=== PATIENT | male | born 1960 | race Caucasian/White ===

== ENCOUNTER 2020-07-13 07:30 | Outpatient (REF) | payer OTHER, SELFPAY | END 2020-07-13 07:31 | disposition home or self-care (01) | LOC: HO.LAB 07:30 | PROVIDERS: PCP Internal Medicine; Visit Provider Internal Medicine | DX: Z20.828 Contact with and (suspected) exposure to other viral communicable diseases (principal) | CPT/HCPCS: C9803; U0003 ==

== ENCOUNTER 2020-07-25 07:16 | Outpatient (REF) | payer OTHER, SELFPAY | END 2020-07-25 07:17 | disposition home or self-care (01) | LOC: HO.LAB 07:16 | PROVIDERS: PCP Internal Medicine; Visit Provider Internal Medicine | DX: Z20.828 Contact with and (suspected) exposure to other viral communicable diseases (principal) | CPT/HCPCS: C9803; U0003 ==

== ENCOUNTER 2020-11-26 08:31 | Outpatient (REF) | payer OTHER, SELFPAY ==
[2020-11-26 09:12] LABS: MANUAL DIFF FLAG NO
[2020-11-26 09:21] LABS: Basophils Absolute Auto 0.1 X10*3/uL (0.0-0.2); Basophils Percent Auto 0.8 % (0-2); Eosinophils Absolute Auto 0.1 X10*3/uL (0.0-0.4); Eosinophils Percent Auto 2.2 % (0-4); Hematocrit 43.8 % (42-52); Hemoglobin 14.4 g/dl (14.0-18.0); Imm Gran Abs Auto 0.02 X10*3/uL (0.00-0.03); Imm Gran Pct Auto 0.3 % (0.0-0.4); Lymphocytes Absolute Auto 1.6 X10*3/uL (1.2-4.9); Mean Corpuscular HGB Conc 32.9 g/dl (31.0-36.0); Mean Corpuscular Hemoglobin 30.2 pg (27.0-33.0); Mean Corpuscular Volume 91.8 fL (80-98); Mean Platelet Volume 8.8 fL (9.4-12.4); Monocytes Absolute Auto 0.6 X10*3/uL (0.1-1.2); Monocytes Percent Auto 9.4 % (2-11); Neutrophils Absolute Auto 3.9 X10*3/uL (2.0-8.3); Neutrophils Percent Auto 62.3 % (45-73); Platelet Count 251 X10*3/uL (160-400); Red Blood Count 4.77 X10*6/uL (4.60-5.80); White Blood Count 6.3 X10*3/uL (4.8-10.8)
[2020-11-26 10:09] LABS: PSA,Total (Free>4and<10) 0.45 ng/mL (0.00-4.00)
[2020-11-26 10:24] LABS: Alanine Aminotransferase 29 U/L (0-40); Albumin Level 4.3 g/dL (3.5-5.0); Alkaline Phosphatase 98 U/L (39-117); Anion Gap 9 (12-20); Aspartate Amino Transferase 24 U/L (5-37); Bilirubin Total 0.9 mg/dL (0.0-1.0); Blood Urea Nitrogen 16 mg/dL (9-16); Calcium 8.9 mg/dL (8.4-10.2); Carbon Dioxide 30 mmol/L (22-29); Chloride 106 mmol/L (96-108); Cholesterol 175 mg/dL; Estimated Glomerular Filt Rate > 60; Glucose Fasting 106 mg/dL (60-99); HDL Cholesterol 36 mg/dL; LDL Cholesterol Calculated 117 mg/dl; Potassium 4.6 mmol/L (3.3-5.1); Sodium 140 mmol/L (135-145); Total Protein 6.7 g/dL (6.5-8.0); Triglycerides 114 mg/dL
== END 2020-11-26 08:32 | disposition home or self-care (01) ==
LOC: HO.LAB 08:31
PROVIDERS: PCP Internal Medicine; Visit Provider Internal Medicine
DX: Z00.00 Encounter for general adult medical examination without abnormal findings (principal); E78.00 Pure hypercholesterolemia, unspecified
CPT/HCPCS: 36415; 80053; 80061; 84153; 85025

== ENCOUNTER → 2021-02-20 14:46 | Outpatient (REF) | payer OTHER, SELFPAY ==
--- NOTE | 2021-02-20 14:50 | CA_ITS ---
Transthoracic Echocardiogram Patient (Last, First, Middle): Navjot Tapia R Gender: Male Date of : 1960 Age: 61 Procedure Date: 02/20/2021 Procedure Type: Transthoracic Echocardiogram Location: OP Height: 175.26 cm Weight: 101.15 kg BSA: 2.16 m2 Heart Rate: bpm BP: 140 / 80 mmHg Professor Of English: JEF Adair MD: Jayesh Waters MD Rn Family Practice: Oracio Solis MD Symptoms: NON RHEUMATIC MITRAL REGURG I34.0 Study Quality: Good ECG Rhythm: Sinus Conclusions: - 1. Normal LV systolic and diastolic function 2. Mild mitral calcification with trace mitral regurgitation 3. Normal RV systolic pressure 4. No pericardial effusion Findings Left Ventricle Normal left ventricular size, thickness, and systolic function. The visually estimated ejection fraction is between 65-70%. Spectral Doppler is indicative of a normal filling pattern. Right Ventricle Normal right ventricular cavity size and systolic function. Atria The left atrium is likely dilated. There is no evidence of interatrial shunt. The right atrium is normal in size. Aortic Valve Normal aortic valve structure and function. There is no aortic valve stenosis. There is no aortic valve regurgitation. Mitral Valve Normal mitral valve structure and function. There is mild mitral annular calcification. There is trace mitral valve regurgitation. There is no mitral valve stenosis. Pulmonic Valve The pulmonic valve is likely normal. Tricuspid Valve Normal tricuspid valve structure. There is trace tricuspid valve regurgitation. The right ventricular systolic pressure is normal. The right ventricular systolic pressure is 20 mmHg. Normal right atrial pressure. There is no evidence of pulmonary hypertension. Great Vessels All visible segments of the aorta are normal in size. The pulmonary artery was not well visualized. Venous The inferior vena cava is normal in size and collapses greater than 50% with inspiration. Pericardium/Pleural There is no evidence of pericardial effusion. Prior Study Comparison No prior study available for comparison. Measurements 2D Linear Measurements IVSd: 1.02 0.6-0.9/0.6-1.0 cm LVIDd: 4.53 3.9-5.3/4.2-5.9 cm LVIDd Index: 2.10 2.4-3.2/2.2-3.1 cm/m2 LVIDs: 2.99 2.0-3.6 cm LVPWd: 1.05 0.7-1.1 cm Ao Root: 3.40 2.1-3.5 cm LA Diam: 3.10 2.7-3.8/3.0-4.0 cm LAIDs Index: 1.44 1.5-2.3 cm/m2 LV Mass: 202.32 67-162/88-224 g LV Mass Index: 93.67 43-95/49-115 g/m2 LVOT Diam: 2.30 3.0+(-)1.3 cm 2D Systolic Function EF 4C: 66.70 >55% EF 2C: 64.70 >55% EF BiP: 65.20 >55% Mitral Valve MV Pk E: 0.78 MV PK A: 0.66 MV Decel Time: 236.00 E/A: 1.20 E'Lateral: 9.90 E'Medial: 6.53 E/E' Med: 11.90 E/E' Lat: 7.80 PHT: 69.00 MVA PHT: 3.19 Decel [place]: 3.30 Aortic Valve AoV Pk Ceasar: 1.22 AoV Mn Ceasar: 0.82 AoV VTI: 0.24 AoV Pk Grad: 6.00 Aov Mn Grad: 3.00 ROSY Cont.VTI: 3.20 LVOT LVOT Pk Ceaasr: 1.15 LVOT Mn Ceasra: 0.69 LVOT VTI: 0.19 LVOT Pk Grad: 5.00 LVOT Mn Grad: 2.00 LVOT Diam: 2.30 LVOT Area: 4.15 Diastolic Function MV Pk E: 0.78 MV Pk A: 0.66 E/A: 1.20 E'Medial: 6.53 E/E' Med: 11.90 E' Laterial: 9.90 E/E' Lat: 7.80 Tricuspid Valve TR Pk Ceasar: 2.06 TR Pk Grad: 17.00 RA Press: 3.00 RVSP: 20.00 Great Vessels Aorta Ao Root-2D: 3.40 2.0-3.7 cm Ao Asc: 3.60 2.1-3.4 cm Ao Arch: 3.00 Updated in Other Vendor System with Status of Final Oracio Solis MD electronically signed on 02/21/2021 11:40:32 AM with status of Final
== END ==
LOC: HO.CARD 14:46
PROVIDERS: Visit Provider Internal Medicine
DX: I34.0 Nonrheumatic mitral (valve) insufficiency (principal)
CPT/HCPCS: 93306

== ENCOUNTER 2021-03-06 08:57 | Outpatient (REF) | payer OTHER, SELFPAY ==
--- NOTE | ~2021-03-06 | US_ITS ---
EXAMINATION: US ABDOMEN COMPLETE CLINICAL INFORMATION: Abdominal pain. COMPARISON: Renal ultrasound 07/29/2012. CT of the abdomen and pelvis 2009 TECHNIQUE: Real-time imaging of the abdominal viscera. FINDINGS: PANCREAS: Normal. ABDOMINAL AORTA: The proximal, mid, and distal segments are normal in caliber. INFERIOR VENA CAVA: Not well visualized due to bowel gas LIVER: The liver is normal in size. The liver contour is normal. Liver echotexture is increased probably representing fatty infiltration. There is a focal hypoechoic areas adjacent to the gallbladder, characteristic location of focal fatty sparing. No other focal hepatic lesion. There is no intrahepatic biliary duct dilatation seen. GALLBLADDER: Normal. The gallbladder is physiologically distended without evidence of stones, sludge, polyps, wall thickening or pericholecystic fluid. COMMON BILE DUCT: Normal in caliber measuring 0.28 cm in diameter. RIGHT KIDNEY: Normal. No hydronephrosis. No renal calculi or focal parenchymal lesions. The kidney measures 12.0 cm in maximum dimension. LEFT KIDNEY: Normal. No hydronephrosis. No renal calculi or focal parenchymal lesions. The kidney measures 11.3 cm in maximum dimension. SPLEEN: Normal. The spleen measures 10.3 cm in maximum dimension. FREE FLUID: None. US/US abdomen complete IMPRESSION: Fatty infiltration of the liver. Limited visualization of the IVC. Otherwise unremarkable exam.
== END 2021-03-06 08:58 | disposition home or self-care (01) ==
LOC: HO.US 08:57
PROVIDERS: Visit Provider Internal Medicine
DX: R10.13 Epigastric pain (principal)
CPT/HCPCS: 76700

== ENCOUNTER 2021-03-10 10:18 | Day surgery (SDC) | payer OTHER, SELFPAY ==
--- NOTE | 2021-03-09 10:10 | P.CONAN_ITS ---
Documented by User: Yelitza Olson 03/09/21 10:11 HPI - Anesthesia Eval Consult details Narrative: 61yo M for Upper Endoscopy and Colonoscopy [facility] Past Medical History Medical History (Updated 03/09/21 @ 10:11 by Yelitza Olson) GERD (gastroesophageal reflux disease) Hyperlipidemia Non-rheumatic mitral regurgitation Surgical History Surgical History (Updated 03/06/21 @ 11:01 by Antoinette Nunes) History of esophagogastroduodenoscopy (EGD) Hx of colonoscopy Hx of hemorrhoidectomy Social History Social History Patient Tobacco Use Status: Never used Tobacco Use of substances other than those prescribed or required for medical reasons: No Have you been hit, kicked, punched, or otherwise hurt by someone within the past year? If so, by whom?: No Are you DNR?: No Advance Directives: No Advance Directives Information Provided: Yes Meds Allergies Allergy/AdvReac Type Severity Reaction Status Date / Time No Known Allergies Allergy Unverified 05/12/20 15:35 Home Medications Medication Instructions Recorded Confirmed Last Taken Type atorvastatin 1 tab PO DAILY 03/06/21 03/06/21 Unknown History omeprazole 1 cap PO DAILY 03/06/21 03/06/21 Unknown History Exam Exam Date and Time: March 09, 2021 1010 Narrative Narrative: ECHO 01/2021 Conclusions: - 1. Normal LV systolic and diastolic function 2. Mild mitral calcification with trace mitral regurgitation 3. Normal RV systolic pressure 4. No pericardial effusion Assessment and Plan Assessment Anesthesia Assessment: Chart Reviewed Documented by User: Saud Haq 03/10/21 12:03 [facility] Past Medical History Medical History (Updated 03/09/21 @ 10:11 by Yelitza Olson) GERD (gastroesophageal reflux disease) Hyperlipidemia Non-rheumatic mitral regurgitation Surgical History Surgical History (Updated 03/06/21 @ 11:01 by Antoinette Nunes) History of esophagogastroduodenoscopy (EGD) Hx of colonoscopy Hx of hemorrhoidectomy Social History Social History Patient Tobacco Use Status: Never used Tobacco Use of substances other than those prescribed or required for medical reasons: No Have you been hit, kicked, punched, or otherwise hurt by someone within the past year? If so, by whom?: No Are you DNR?: No Advance Directives: No Advance Directives Information Provided: Yes Meds Allergies Allergy/AdvReac Type Severity Reaction Status Date / Time No Known Allergies Allergy Unverified 05/12/20 15:35 Home Medications Medication Instructions Recorded Confirmed Last Taken Type atorvastatin 1 tab PO DAILY 03/06/21 03/06/21 Unknown History omeprazole 1 cap PO DAILY 03/06/21 03/06/21 Unknown History Exam Airway Mallampati Class: III TM Dist: >3cm Neck ROM: Full Partial: Upper Heart: [id number]+[id number] Lungs: cta b/l Assessment and Plan Assessment Anesthesia Assessment: Anesthesia Plan Discussed, PAT Visit and Chart Reviewed Final Anesthetic Review NPO: Yes ASA Class: III Final Preanesthetic Review: No Changes in Pt Med Stat, Meds/Allgs Chart Reviewed, Consent Obtained/Reviewed and Anes Risks/Benef Reviewed Patient Risk: Intermediate Procedure Risk: Low Assessment/Block/Sedation in SS: Assess/Block/Sedation-SS Anesthetic Plan Anesthetic Plan: MAC: and Agree w/ Assess. and Plan Disposition: Standard PACU
[2021-03-10 10:35] VITALS: BMI 32.5
[2021-03-10 10:36] VITALS: BP 168/75; PULSE 69; RESP 18; TEMP 36.5; O2SAT 97
[2021-03-10] MEDS: Lactated Ringers 1,000 ML 100 ML IVCONT (10:57)
[2021-03-10 13:03] VITALS: BP 114/68; PULSE 62; RESP 12; TEMP 36.2; O2SAT 94
--- NOTE | 2021-03-10 13:04 | P.BOP_ITS ---
Brief Operative Note Date of Service: 03/10/21 Pre-op diagnosis: GERD, Screening Post-op diagnosis: other (Hiatal hernia, Gastric polyps, Colon polyp) Procedure: EGD with biopsy and Colonoscopy to the cecum with biopsy and removal of polyp Surgeon: Gibson Reagan Anesthesia: MAC Was an Insurance Claim Representative used for this Procedure?: No Estimated blood loss (mL): 3.0 Pathology: other (A. EG Junction at 37cm B. Gastric polyps C. Colon polyp at 20cm) Condition: stable Disposition: PACU
[2021-03-10 13:18] VITALS: BP 135/81; PULSE 64; RESP 17; TEMP 36.2; O2SAT 96
[2021-03-10] MEDS: Acetaminophen 325 MG TABLET 650 MG PO (13:27)
--- NOTE | 2021-03-10 13:33 | OP_ITS ---
SURGEON: Gibson Reagan MD INDICATIONS: The patient presents for evaluation of gastroesophageal reflux, family history of esophageal cancer, and colorectal cancer screening. Full consent has been obtained from him for both procedures, including risks of bleeding and perforation. PREOPERATIVE DIAGNOSIS: POSTOPERATIVE DIAGNOSIS: PROCEDURE PERFORMED: Esophagogastroduodenoscopy with biopsies, and colonoscopy to the cecum with biopsy and removal of polyp. ESTIMATED BLOOD LOSS: COMPLICATIONS: ANESTHESIA: Monitored anesthesia care. ASSISTANTS: SPECIMENS: PREOPERATIVE DIAGNOSES: Gastroesophageal reflux, family history of esophageal cancer, colorectal cancer screening. POSTOPERATIVE DIAGNOSES: Gastroesophageal reflux, family history of esophageal cancer, colorectal cancer screening, hiatal hernia, gastric polyps, colon polyp, diverticulosis and internal hemorrhoids. DESCRIPTION OF PROCEDURE: The patient was placed in the left lateral decubitus position. The Olympus video gastroscope was passed in the posterior oropharynx and upper esophagus under direct vision. The scope was passed slowly into the distal esophagus. The gastroesophageal junction appeared at 37 cm. There was a very minimal irregularity, but no esophagitis nor any definitive evidence of Bautista's mucosa. The scope entered into the stomach. There was a small hiatal hernia. The scope was advanced to pylorus and the duodenum was cannulated to the descending portion. The duodenum including the bulb appeared normal without mass or ulceration. The scope was withdrawn back in the stomach. The gastric antrum and body appeared normal with good peristalsis. The scope was retroflexed visualizing the proximal stomach carefully, which appeared normal, without any sign of mass or ulceration, other than some hyperplastic appearing gastric polyps. Several of these were biopsied. The scope was straightened out and withdrawn back into the esophagus. Biopsies were obtained at the EG junction at 37 cm. Proximal to this, the esophageal mucosa appeared normal. The scope was withdrawn from the patient. He was turned around for the colonoscopy. The digital rectal exam revealed no abnormalities. The Olympus video pediatric colonoscope was entered into the rectum and advanced easily to the cecum. Once in the cecum, I did identify normal-appearing cecal pouch with appendiceal orifice and a normal-appearing ileocecal valve. The entire cecum and ileocecal valve appeared normal. There was transillumination of light deep in the right lower quadrant. The scope was slowly withdrawn assessing all mucosal surfaces carefully. Preparation was excellent. At 20 cm, was a flat approximately 4 mm polyp, which was biopsied and completely removed with cold biopsy forceps. I did not visualize any other polyps, colitis, nor angiodysplasia. There was a moderate amount of sigmoid diverticulosis. In the rectum, scope was retroflexed visualizing small internal hemorrhoids, but no other pathology. The rectal mucosa appeared normal. The scope was straightened out and withdrawn from the patient. He tolerated both procedures well and was returned to the recovery area in stable condition. IMPRESSION: 1. Hiatal hernia, gastroesophageal reflux. 2. Gastric polyps. 3. Colon polyp. 4. Diverticulosis. 5. Internal hemorrhoids. PLAN: The results of biopsy will be checked. If the colon polyp is a tubular adenoma, I would recommend a followup colonoscopy in 5 years. If it is only hyperplastic, I would recommend a followup colonoscopy in 10 years. He was advised to continue his daily omeprazole. He will otherwise see me on a p.r.n. basis. MD TANMAY Mendoza/MAGY / [phone]
== END 2021-03-10 13:51 | disposition home or self-care (01) ==
PROVIDERS: PCP Internal Medicine; Visit Provider Internal Medicine
PROC: (CPT 45380; principal; 2021-03-10 11:30)
DX: Z12.11 Encounter for screening for malignant neoplasm of colon (principal); K63.5 Polyp of colon; K57.30 Diverticulosis of large intestine without perforation or abscess without bleeding; K64.8 Other hemorrhoids; K21.9 Gastro-esophageal reflux disease without esophagitis; Z80.0 Family history of malignant neoplasm of digestive organs; K31.7 Polyp of stomach and duodenum; K44.9 Diaphragmatic hernia without obstruction or gangrene; E78.5 Hyperlipidemia, unspecified; I34.0 Nonrheumatic mitral (valve) insufficiency; Z79.899 Other long term (current) drug therapy
CPT/HCPCS: 45380; 43239; 88305; 88342

== ENCOUNTER 2021-06-03 08:13 | Outpatient (REF) | payer OTHER, SELFPAY ==
[2021-06-03 09:15] LABS: Alanine Aminotransferase 28 U/L (0-40); Albumin Level 4.4 g/dL (3.5-5.0); Alkaline Phosphatase 113 U/L (39-117); Aspartate Amino Transferase 25 U/L (5-37); Bilirubin Direct 0.3 mg/dL (0.0-0.5); Bilirubin Total 0.7 mg/dL (0.0-1.0); Cholesterol 180 mg/dL; HDL Cholesterol 39 mg/dL; LDL Cholesterol Calculated 125 mg/dl; Total Protein 6.8 g/dL (6.5-8.0); Triglycerides 84 mg/dL
== END 2021-06-03 08:14 | disposition home or self-care (01) ==
LOC: HO.LAB 08:13
PROVIDERS: PCP Internal Medicine; Visit Provider Internal Medicine
DX: E78.00 Pure hypercholesterolemia, unspecified (principal)
CPT/HCPCS: 36415; 80061; 80076

== ENCOUNTER 2021-09-09 08:38 | Outpatient (REF) | payer OTHER, SELFPAY ==
[2021-09-09 10:01] LABS: Alanine Aminotransferase 25 U/L (0-40); Albumin Level 4.5 g/dL (3.5-5.0); Alkaline Phosphatase 100 U/L (39-117); Aspartate Amino Transferase 24 U/L (5-37); Bilirubin Direct 0.4 mg/dL (0.0-0.5); Bilirubin Total 0.9 mg/dL (0.0-1.0); Cholesterol 142 mg/dL; HDL Cholesterol 41 mg/dL; LDL Cholesterol Calculated 82 mg/dl; Triglycerides 99 mg/dL
== END 2021-09-09 08:39 | disposition home or self-care (01) ==
LOC: HO.LAB 08:38
PROVIDERS: PCP Internal Medicine; Visit Provider Internal Medicine
DX: E78.00 Pure hypercholesterolemia, unspecified (principal)
CPT/HCPCS: 36415; 80061; 80076

== ENCOUNTER 2021-12-02 08:41 | Outpatient (REF) | payer OTHER, SELFPAY ==
[2021-12-02 08:52] LABS: MANUAL DIFF FLAG NO
[2021-12-02 09:27] LABS: Basophils Percent Auto 0.8 % (0-2); Eosinophils Absolute Auto 0.1 X10*3/uL (0.0-0.4); Eosinophils Percent Auto 2.7 % (0-4); Hematocrit 42.5 % (42.0-52.0); Hemoglobin 13.9 g/dl (14.0-18.0); Imm Gran Abs Auto 0.02 X10*3/uL (0.00-0.03); Imm Gran Pct Auto 0.4 % (0.0-0.4); Lymphocytes Absolute Auto 1.6 X10*3/uL (1.2-4.9); Lymphocytes Percent Auto 30.4 % (20-40); Mean Corpuscular HGB Conc 32.7 g/dl (31.0-36.0); Mean Corpuscular Hemoglobin 29.8 pg (27.0-33.0); Monocytes Absolute Auto 0.5 X10*3/uL (0.1-1.2); Monocytes Percent Auto 9.5 % (2-11); Neutrophils Absolute Auto 2.9 x10*3/uL (2.0-8.3); Neutrophils Percent Auto 56.2 % (45-73); Platelet Count 218 X10*3/uL (160-400); Red Blood Count 4.67 X10*6/uL (4.60-5.80); Red Cell Distribution Width 13.2 % (11.0-16.0); White Blood Count 5.2 X10*3/uL (4.8-10.8)
[2021-12-02 09:29] LABS: Appearance Urine CLEAR; Color Urine YELLOW; Glucose Urine UA NEG (NEG); Leukocyte Esterase Urine NEG (NEG); Nitrite Urine NEG (NEG); PH 7.5 (5.0-8.0); Specific Gravity - Urine 1.015 (1.005-1.025); Urine Blood 1+ (NEG); Urine Ketones NEG (NEG); Urine Protein NEG (NEG-TRACE)
[2021-12-02 09:39] LABS: Alanine Aminotransferase 34 U/L (0-40); Albumin Level 4.4 g/dL (3.5-5.0); Alkaline Phosphatase 92 U/L (39-117); Anion Gap 11 (12-20); Aspartate Amino Transferase 29 U/L (5-37); Bilirubin Total 0.7 mg/dL (0.0-1.0); Blood Urea Nitrogen 9 mg/dL (9-16); Calcium 9.1 mg/dL (8.4-10.2); Carbon Dioxide 28 mmol/L (22-29); Chloride 107 mmol/L (96-108); Cholesterol 158 mg/dL; Estimated Glomerular Filt Rate > 60; Glucose Fasting 101 mg/dL (60-99); HDL Cholesterol 40 mg/dL; LDL Cholesterol Calculated 97 mg/dl; Potassium 4.5 mmol/L (3.3-5.1); Sodium 141 mmol/L (135-145); Total Protein 6.8 g/dL (6.5-8.0); Triglycerides 107 mg/dL
[2021-12-02 09:41] LABS: WBC Urine 0-2 /HPF (0-4)
== END 2021-12-02 08:42 | disposition home or self-care (01) ==
LOC: HO.LAB 08:41
PROVIDERS: PCP Internal Medicine; Visit Provider Internal Medicine
DX: Z00.00 Encounter for general adult medical examination without abnormal findings (principal); Z12.5 Encounter for screening for malignant neoplasm of prostate; E78.00 Pure hypercholesterolemia, unspecified
CPT/HCPCS: 36415; 80053; 80061; 81001; 84153; 85025

== ENCOUNTER 2022-06-02 10:30 | Outpatient (REF) | payer OTHER, SELFPAY ==
[2022-06-02 11:59] LABS: Alanine Aminotransferase 24 U/L (0-40); Albumin Level 4.6 g/dL (3.5-5.0); Alkaline Phosphatase 82 U/L (39-117); Aspartate Amino Transferase 26 U/L (5-37); Bilirubin Direct 0.3 mg/dL (0.0-0.5); Bilirubin Total 0.8 mg/dL (0.0-1.0); Cholesterol 168 mg/dL; HDL Cholesterol 39 mg/dL; LDL Cholesterol Calculated 104 mg/dl; Total Protein 7.1 g/dL (6.5-8.0); Triglycerides 127 mg/dL
== END 2022-06-02 10:31 | disposition home or self-care (01) ==
LOC: HO.LAB 10:30
PROVIDERS: Visit Provider Internal Medicine
DX: E78.00 Pure hypercholesterolemia, unspecified (principal)
CPT/HCPCS: 36415; 80061; 80076

== ENCOUNTER 2022-12-15 09:18 | Outpatient (REF) | payer OTHER, SELFPAY ==
[2022-12-15 09:33] LABS: MANUAL DIFF FLAG NO
[2022-12-15 10:31] LABS: Appearance Urine Clear; Color Urine Yellow; Glucose Urine UA Negative (Negative); Leukocyte Esterase Urine Negative (Negative); Nitrite Urine Negative (Negative); PH 8.5 (5.0-9.0); Urine Blood Negative (Negative); Urine Ketones Negative (Negative); Urine Protein Negative (Neg-Trace)
[2022-12-15 10:44] LABS: Basophils Absolute Auto 0.1 X10*3/uL (0.0-0.2); Basophils Percent Auto 0.8 % (0-2); Eosinophils Absolute Auto 0.1 X10*3/uL (0.0-0.4); Eosinophils Percent Auto 2.2 % (0-4); Hematocrit 44.3 % (42.0-52.0); Hemoglobin 14.6 g/dl (14.0-18.0); Imm Gran Abs Auto 0.02 X10*3/uL (0.00-0.03); Imm Gran Pct Auto 0.3 % (0.0-0.4); Lymphocytes Absolute Auto 1.6 X10*3/uL (1.2-4.9); Mean Corpuscular Hemoglobin 29.8 pg (27.0-33.0); Mean Corpuscular Volume 90.4 fL (80.0-98.0); Mean Platelet Volume 9.1 fL (9.4-12.4); Monocytes Absolute Auto 0.5 X10*3/uL (0.1-1.2); Monocytes Percent Auto 8.5 % (2-11); Neutrophils Absolute Auto 3.8 x10*3/uL (2.0-8.3); Neutrophils Percent Auto 62.2 % (45-73); Platelet Count 251 X10*3/uL (160-400)
[2022-12-15 11:15] LABS: Alanine Aminotransferase 27 U/L (0-40); Albumin Level 4.5 g/dL (3.5-5.0); Alkaline Phosphatase 82 U/L (39-117); Anion Gap 12 (12-20); Aspartate Amino Transferase 27 U/L (5-37); Bilirubin Total 1.1 mg/dL (0.0-1.0); Blood Urea Nitrogen 11 mg/dL (9-16); Calcium 9.3 mg/dL (8.4-10.2); Carbon Dioxide 26 mmol/L (22-29); Chloride 108 mmol/L (96-108); Cholesterol 143 mg/dL; Estimated Glomerular Filt Rate > 60; Glucose Fasting 91 mg/dL (60-99); HDL Cholesterol 37 mg/dL; LDL Cholesterol Calculated 84 mg/dl; Potassium 4.5 mmol/L (3.3-5.1); Sodium 141 mmol/L (135-145); Total Protein 6.6 g/dL (6.5-8.0); Triglycerides 113 mg/dL
== END 2022-12-15 09:19 | disposition home or self-care (01) ==
LOC: HO.LAB 09:18
PROVIDERS: PCP Internal Medicine; Visit Provider Internal Medicine
DX: Z00.00 Encounter for general adult medical examination without abnormal findings (principal); E78.00 Pure hypercholesterolemia, unspecified; Z12.5 Encounter for screening for malignant neoplasm of prostate
CPT/HCPCS: 36415; 80053; 80061; 81003; 84153; 85025

== ENCOUNTER 2023-07-05 09:42 | Outpatient (REF) | payer OTHER, SELFPAY ==
[2023-07-05 11:28] LABS: Cholesterol 143 mg/dL (<200); HDL Cholesterol 37 mg/dL (>40); LDL Cholesterol Calculated 89 mg/dL (<100); Triglycerides 89 mg/dL (<150)
[2023-07-05 11:45] LABS: Alanine Aminotransferase 20 U/L (0-40); Albumin Level 4.3 g/dL (3.5-5.0); Alkaline Phosphatase 78 U/L (39-117); Aspartate Amino Transferase 24 U/L (5-37); Bilirubin Direct 0.2 mg/dL (0.0-0.5); Bilirubin Total 0.7 mg/dL (0.0-1.0)
[2023-07-05 12:04] LABS: Reflex LDLD? No
== END 2023-07-05 09:43 | disposition home or self-care (01) ==
LOC: HO.LAB 09:42
PROVIDERS: PCP Internal Medicine; Visit Provider Internal Medicine
DX: E78.00 Pure hypercholesterolemia, unspecified (principal)
CPT/HCPCS: 36415; 80061; 80076

== ENCOUNTER 2023-12-21 09:08 | Outpatient (REF) | payer BC, SELFPAY ==
[2023-12-21 09:23] LABS: MANUAL DIFF FLAG NO
[2023-12-21 09:31] LABS: Basophils Percent Auto 0.6 % (0-2); Eosinophils Absolute Auto 0.1 X10*3/uL (0.0-0.4); Eosinophils Percent Auto 2.1 % (0-4); Hematocrit 44.4 % (42.0-52.0); Hemoglobin 15.1 g/dl (14.0-18.0); Imm Gran Abs Auto 0.02 X10*3/uL (0.00-0.03); Imm Gran Pct Auto 0.3 % (0.0-0.4); Lymphocytes Absolute Auto 1.3 X10*3/uL (1.2-4.9); Lymphocytes Percent Auto 21.1 % (20-40); Mean Corpuscular Hemoglobin 30.6 pg (27.0-33.0); Mean Corpuscular Volume 90.1 fL (80.0-98.0); Mean Platelet Volume 8.5 fL (9.4-12.4); Monocytes Absolute Auto 0.6 X10*3/uL (0.1-1.2); Monocytes Percent Auto 9.4 % (2-11); Neutrophils Absolute Auto 4.2 x10*3/uL (2.0-8.3); Neutrophils Percent Auto 66.5 % (45-73); Platelet Count 216 X10*3/uL (160-400); Red Blood Count 4.93 X10*6/uL (4.60-5.80); Red Cell Distribution Width 12.9 % (11.0-16.0); White Blood Count 6.3 X10*3/uL (4.8-10.8)
[2023-12-21 10:20] LABS: Alanine Aminotransferase 30 U/L (0-40); Albumin Level 4.4 g/dL (3.5-5.0); Alkaline Phosphatase 82 U/L (39-117); Anion Gap 11 (12-20); Aspartate Amino Transferase 29 U/L (5-37); Bilirubin Total 0.7 mg/dL (0.0-1.0); Blood Urea Nitrogen 8 mg/dL (9-16); Calcium 9.6 mg/dL (8.4-10.2); Carbon Dioxide 30 mmol/L (22-29); Chloride 107 mmol/L (96-108); Cholesterol 160 mg/dL (<200); Estimated Glomerular Filt Rate > 60; Glucose Fasting 105 mg/dL (60-99); HDL Cholesterol 37 mg/dL (>40); LDL Cholesterol Calculated 91 mg/dL (<100); Potassium 4.3 mmol/L (3.3-5.1); Sodium 144 mmol/L (135-145); Total Protein 7.3 g/dL (6.5-8.0); Triglycerides 160 mg/dL (<150)
[2023-12-21 10:41] LABS: PSA,Total (Free>4and<10) 0.43 ng/mL (0.00-4.00)
[2023-12-21 11:22] LABS: Appearance Urine Clear; Color Urine Yellow; Glucose Urine UA Negative (Negative); Leukocyte Esterase Urine Negative (Negative); Nitrite Urine Negative (Negative); PH >= 9.0 (5.0-9.0); Specific Gravity - Urine 1.015 (1.005-1.025); UMIC TRIGGER UACC YES; Urine Blood Trace (Negative); Urine Ketones Negative (Negative); Urine Protein 30 (1+) mg/dL (Neg-Trace)
[2023-12-21 11:24] LABS: Bacteria Urine None Seen (None Seen); Squamous Epithelial Cell Urine 0-2 /HPF (0-2); WBC Urine 0-5 /HPF (0-5)
== END 2023-12-21 09:09 | disposition home or self-care (01) ==
LOC: HO.LAB 09:08
PROVIDERS: PCP Internal Medicine; Visit Provider Internal Medicine
DX: Z00.00 Encounter for general adult medical examination without abnormal findings (principal); E78.00 Pure hypercholesterolemia, unspecified; Z87.448 Personal history of other diseases of urinary system; Z12.5 Encounter for screening for malignant neoplasm of prostate
CPT/HCPCS: 36415; 80053; 80061; 81001; 84153; 85025

== ENCOUNTER 2024-01-02 15:48 | Outpatient (REF) | payer BC, SELFPAY ==
[2024-01-02 15:55] LABS: Urine Cytology See Pathology rpt
[2024-01-02 16:31] LABS: Appearance Urine Clear; Color Urine Yellow; Glucose Urine UA Negative (Negative); Leukocyte Esterase Urine Negative (Negative); Nitrite Urine Negative (Negative); PH 6.5 (5.0-9.0); Specific Gravity - Urine <= 1.005 (1.005-1.025); Urine Blood Negative (Negative); Urine Ketones Negative (Negative); Urine Protein Negative (Neg-Trace)
[2024-01-02 16:34] LABS: Bacteria Urine None Seen (None Seen); Hyaline Casts Urine 0-2 /LPF (0-2); RBC Urine 0-2 /HPF (0-2); Squamous Epithelial Cell Urine 0-2 /HPF (0-2); WBC Urine 0-5 /HPF (0-5)
== END 2024-01-02 15:49 | disposition home or self-care (01) ==
LOC: HO.LNP 15:48
PROVIDERS: Visit Provider Internal Medicine
DX: E78.00 Pure hypercholesterolemia, unspecified (principal); Z87.448 Personal history of other diseases of urinary system; Z83.3 Family history of diabetes mellitus
CPT/HCPCS: 81001; 88112

== ENCOUNTER 2024-04-28 11:48 | Outpatient (REF) | payer BC, SELFPAY ==
--- NOTE | ~2024-04-28 | XR_ITS ---
EXAMINATION: XR CHEST CLINICAL INFORMATION: Right-sided pain COMPARISON: None available. TECHNIQUE: 2 views of the chest were obtained. FINDINGS: Heart and pulmonary vessels normal. Lungs clear. No pleural effusion. The osseous structures appear intact. There is spondylitic change in the thoracic spine. XR/XR chest 2V IMPRESSION: No active disease. Electronically signed by: Brigido Ferreira MD 04/28/2024 01:36 PM EDT
--- NOTE | ~2024-04-28 | US_ITS ---
EXAMINATION: US TRIPLEX LOWER EXTREMITY, BILATERAL CLINICAL INFORMATION: Bilateral leg edema COMPARISON: None available. TECHNIQUE: Color-flow triplex imaging with spectral analysis and compression Doppler were performed on the bilateral lower extremities. The exam is slightly limited as the left peroneal vein is not visualized. FINDINGS: Respiratory variation, normal compression and augmented flow are noted throughout the bilateral lower extremities. The visualized common femoral vein, superficial femoral vein, profunda femoral vein, popliteal vein and midcalf right peroneal and bilateral posterior tibial venous segments show no evidence of deep venous thrombosis bilaterally. There is no Castillo's cyst. US/US venous duplex LE BI IMPRESSION: No evidence of deep venous thrombosis involving the bilateral lower extremities. Electronically signed by: Fabrizio Trent MD 04/28/2024 12:57 PM EDT
== END 2024-04-28 11:49 | disposition home or self-care (01) ==
LOC: HO.US 11:48
PROVIDERS: PCP Internal Medicine; Visit Provider Internal Medicine
DX: R60.0 Localized edema (principal)
CPT/HCPCS: 71046; 93970

== ENCOUNTER 2024-04-28 13:21 | Outpatient (REF) | payer BC, SELFPAY ==
[2024-04-28 13:34] LABS: Blood Urea Nitrogen 11 mg/dL (9-16); Estimated Glomerular Filt Rate > 60
== END 2024-04-28 13:22 | disposition home or self-care (01) ==
LOC: HO.LNP 13:21
PROVIDERS: Visit Provider Internal Medicine
DX: R07.81 Pleurodynia (principal)
CPT/HCPCS: 82565; 84520

== ENCOUNTER → 2024-05-26 14:51 | Outpatient (REF) | payer BC, SELFPAY ==
--- NOTE | 2024-05-26 14:54 | CA_ITS ---
Transthoracic Echocardiogram Patient (Last, First, Middle): Navjot Tapia R Gender: Male Date of : 1960 Age: 64 Procedure Date: 05/26/2024 Procedure Type: Transthoracic Echocardiogram Location: OP Height: 175.26 cm Weight: 102.06 kg BSA: 2.17 m2 Heart Rate: 65 bpm BP: 128 / 60 mmHg Experimental Physicist: Referring MD: Jayesh Waters MD Symptoms: R01.1 CA MURMUR Study Quality: Adequate ECG Rhythm: Sinus Conclusions: - The left ventricular systolic function is normal. The visually estimated ejection fraction is between 65-70%. - There is mildly increased left ventricular wall thickness. - There is mild mitral annular calcification. - No obvious valvular pathology seen on this study. Findings Left Ventricle Normal left ventricular cavity size. There is mildly increased left ventricular wall thickness. The left ventricular systolic function is normal. The visually estimated ejection fraction is between 65-70%. There is no evidence of regional wall motion abnormalities. Diastolic function is normal for age. Right Ventricle Normal right ventricular cavity size and systolic function. Atria The left atrium is mildly dilated. The right atrium is normal in size. Aortic Valve There is a normal trileaflet aortic valve. There is no aortic valve stenosis. There is no aortic valve regurgitation. Mitral Valve There is mild mitral annular calcification. There is no mitral valve regurgitation. There is no mitral valve stenosis. Pulmonic Valve The pulmonic valve is likely normal. Tricuspid Valve Normal tricuspid valve structure. There is trace tricuspid valve regurgitation. There is no evidence of pulmonary hypertension. Great Vessels The asc aorta is normal in size. Venous The inferior vena cava is normal in size and collapses greater than 50% with inspiration. Pericardium/Pleural There is no evidence of pericardial effusion. Prior Study Comparison No significant change compared to prior study dated: 02/20/2021. Recommendations, Care & Conclusions No obvious valvular pathology seen on this study. Measurements 2D Linear Measurements IVSd: 1.07 0.6-0.9/0.6-1.0 cm LVIDd: 4.58 3.9-5.3/4.2-5.9 cm LVIDd Index: 2.11 2.4-3.2/2.2-3.1 cm/m2 LVIDs: 3.02 2.0-3.6 cm LVPWd: 1.12 0.7-1.1 cm LA Diam: 3.90 2.7-3.8/3.0-4.0 cm LAIDs Index: 1.80 1.5-2.3 cm/m2 LV Mass: 222.79 67-162/88-224 g LV Mass Index: 102.67 43-95/49-115 g/m2 LVOT Diam: 2.20 3.0+(-)1.3 cm 2D Systolic Function EF 4C: 62.00 >55% EF 2C: 69.40 >55% EF BiP: 63.30 >55% Mitral Valve MV Pk E: 0.77 MV PK A: 0.79 MV Decel Time: 236.00 E/A: 1.00 E'Lateral: 8.92 E'Medial: 5.98 E/E' Med: 12.90 E/E' Lat: 8.60 PHT: 69.00 MVA PHT: 3.19 Decel Wilkes: 3.26 Aortic Valve AoV Pk Ceasar: 1.28 AoV Mn Ceasar: 0.88 AoV VTI: 0.24 AoV Pk Grad: 7.00 Aov Mn Grad: 4.00 ROSY Cont.VTI: 3.44 LVOT LVOT Pk Ceasar: 1.03 LVOT Mn Ceasar: 0.66 LVOT VTI: 0.22 LVOT Pk Grad: 4.00 LVOT Mn Grad: 2.00 LVOT Diam: 2.20 LVOT Area: 3.80 Diastolic Function MV Pk E: 0.77 MV Pk A: 0.79 E/A: 1.00 E'Medial: 5.98 E/E' Med: 12.90 E' Laterial: 8.92 E/E' Lat: 8.60 Right Ventricle TAPSE (mm): 25.60 TVS' Ceasar: 14.40 Tricuspid Valve TR Pk Ceasar: 1.77 TR Pk Grad: 13.00 RA Press: 3.00 RVSP: 16.00 Great Vessels Aorta Sinus of Valsalva: 3.20 2.0-3.5 cm Ao Asc: 3.60 2.1-3.4 cm Pulmonary Valve PV Pk Ceasar: 0.80 Peak PV Grad: 3.00 Updated in Other Vendor System with Status of Final Ayo Denis MD electronically signed on 05/26/2024 4:16:48 PM with status of Final
== END ==
LOC: HO.CARD 14:51
PROVIDERS: PCP Internal Medicine; Visit Provider Internal Medicine
DX: R01.1 Cardiac murmur, unspecified (principal)
CPT/HCPCS: 93306

== ENCOUNTER → 2024-05-26 14:54 | Outpatient (BNV) | payer BC, SELFPAY | PROVIDERS: PCP Internal Medicine; Visit Provider Internal Medicine | DX: I34.81 Nonrheumatic mitral (valve) annulus calcification (principal); R01.1 Cardiac murmur, unspecified | CPT/HCPCS: 93306 ==

== ENCOUNTER 2024-12-26 08:45 | Outpatient (REF) | payer BC, SELFPAY ==
[2024-12-26 09:37] LABS: MANUAL DIFF FLAG NO
[2024-12-26 09:56] LABS: Basophils Absolute Auto 0.1 X10*3/uL (0.0-0.2); Basophils Percent Auto 1.1 % (0-2); Eosinophils Absolute Auto 0.2 X10*3/uL (0.0-0.4); Eosinophils Percent Auto 2.9 % (0-4); Hematocrit 43.8 % (42.0-52.0); Hemoglobin 14.8 g/dl (14.0-18.0); Imm Gran Abs Auto 0.02 X10*3/uL (0.00-0.03); Imm Gran Pct Auto 0.3 % (0.0-0.4); Lymphocytes Absolute Auto 1.8 X10*3/uL (1.2-4.9); Lymphocytes Percent Auto 28.5 % (20-40); Mean Corpuscular HGB Conc 33.8 g/dl (31.0-36.0); Mean Corpuscular Volume 88.8 fL (80.0-98.0); Mean Platelet Volume 8.7 fL (9.4-12.4); Monocytes Absolute Auto 0.6 X10*3/uL (0.1-1.2); Monocytes Percent Auto 9.2 % (2-11); Neutrophils Absolute Auto 3.7 x10*3/uL (2.0-8.3); Platelet Count 229 X10*3/uL (160-400); Red Blood Count 4.93 X10*6/uL (4.60-5.80); Red Cell Distribution Width 13.3 % (11.0-16.0); White Blood Count 6.3 X10*3/uL (4.8-10.8)
[2024-12-26 10:32] LABS: Appearance Urine Clear; Color Urine Yellow; Glucose Urine UA Negative (Negative); Leukocyte Esterase Urine Negative (Negative); Nitrite Urine Negative (Negative); Specific Gravity - Urine <= 1.005 (1.005-1.025); UMIC TRIGGER UACC YES; Urine Blood Trace (Negative); Urine Ketones Negative (Negative); Urine Protein Negative (Neg-Trace)
[2024-12-26 10:36] LABS: Bacteria Urine None Seen (None Seen); Hyaline Casts Urine 0-2 /LPF (0-2); RBC Urine 0-2 /HPF (0-2); Squamous Epithelial Cell Urine 0-2 /HPF (0-2); WBC Urine 0-5 /HPF (0-5)
[2024-12-26 10:40] LABS: Alanine Aminotransferase 38 U/L (0-40); Albumin Level 4.4 g/dL (3.5-5.0); Alkaline Phosphatase 88 U/L (39-117); Anion Gap 12 (12-20); Aspartate Amino Transferase 36 U/L (5-37); Bilirubin Total 0.7 mg/dL (0.0-1.0); Blood Urea Nitrogen 10 mg/dL (9-16); Calcium 9.2 mg/dL (8.4-10.2); Carbon Dioxide 26 mmol/L (22-29); Chloride 107 mmol/L (96-108); Estimated Glomerular Filt Rate > 60; Glucose Random 106 mg/dL (60-115); Lipase 13 U/L (8-78); Potassium 4.3 mmol/L (3.3-5.1); Sodium 141 mmol/L (135-145); Total Protein 7.1 g/dL (6.5-8.0)
[2024-12-26 11:04] LABS: PSA,Total (Free>4and<10) 0.38 ng/mL (0.00-4.00)
== END 2024-12-26 08:46 | disposition home or self-care (01) ==
LOC: HO.LAB 08:45
PROVIDERS: PCP Internal Medicine; Visit Provider Internal Medicine
DX: Z00.00 Encounter for general adult medical examination without abnormal findings (principal); E78.00 Pure hypercholesterolemia, unspecified; I10 Essential (primary) hypertension; Z12.5 Encounter for screening for malignant neoplasm of prostate
CPT/HCPCS: 36415; 80053; 81001; 83690; 84153; 85025

== ENCOUNTER 2025-01-12 08:26 | Outpatient (REF) | payer BC, SELFPAY ==
--- OUTSIDE RECORDS SUMMARY | 2025-01-12 08:34 | XMS_ITS | Patient Health Record ---
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 Name Role Phone Jayesh Waters Primary Care Provider [phone] Allergies No Known Allergies Results Component Value Reference Range Notes Occult Blood, Stool, Guaiac Reviewed date:01/07/2025 03:26:26 PM Interpretation:Negative Performing Lab: Notes/Report: Negative Occult Blood, Stool, Guaiac Neg Blood Urea Nitrogen Reviewed date:04/28/2024 01:55:20 PM Interpretation: Performing Lab:[facility], [address] [place] [phone] Notes/Report: Blood Urea Nitrogen 11 9-16 mg/dL Creatinine Reviewed date:04/28/2024 01:55:27 PM Interpretation: Performing Lab:[facility], [address] [place] [phone] Notes/Report: Creatinine 0.88 0.5-1.4 mg/dL Estimated Glomerular Filt Rate > 60 NOTE: For -Latvian individuals, multiply the result by 1.210. Chronic Kidney Disease: Estimated GFR < 60 mL/min/1.73m2 Severe Kidney Disease: Estimated GFR < 15 mL/min/1.73m2 US venous duplex LE BI Reviewed date:04/28/2024 01:04:53 PM Interpretation: Performing Lab: Notes/Report: [facility] [address] [place] [address] Ultrasound Report Signed Patient: Navjot Tapia MR#: [id number] 300 : 1960 Acct:[id number] Age/Sex: 64 / M ADM Date: 04/28/24 Loc: HO.US Attending Dr: Jayesh Waters MD Ordering Physician: Jayesh Waters MD Date of Service: 04/28/24 Procedure(s): US venous duplex LE BI Accession Number(s): [id number] cc: Jayesh Waters MD EXAMINATION: US TRIPLEX LOWER EXTREMITY, BILATERAL CLINICAL INFORMATION: Bilateral leg edema COMPARISON: None available. TECHNIQUE: Color-flow triplex imaging with spectral analysis and compression Doppler were performed on the bilateral lower extremities. The exam is slightly limited as the left peroneal vein is not visualized. FINDINGS: Respiratory variation, normal compression and augmented flow are noted throughout the bilateral lower extremities. The visualized common femoral vein, superficial femoral vein, profunda femoral vein, popliteal vein and midcalf right peroneal and bilateral posterior tibial venous segments show no evidence of deep venous thrombosis bilaterally. There is no Castillo's cyst. US/US venous duplex LE BI IMPRESSION: No evidence of deep venous thrombosis involving the bilateral lower extremities. Electronically signed by: Fabrizio Trent MD 04/28/2024 12:57 PM EDT Dictated By: Adonay Trent MD Signed By: <Electronically signed by Adonay Trent MD in OV> 04/28/24 1257 DD/ 1223 TD/TT: 04/28/24 1237 [employer] Tender: [place] [address] [address] Ultrasound Report Signed Patient: Holden Tapia MR#: [id number] 300 : 1960 Acct:[id number] Age/Sex: 64 / M ADM Date: 04/28/24 Loc: .US Attending Dr: Jayesh Waters MD Ordering Physician: Jayesh Waters MD Date of Service: 04/28/24 Procedure(s): US nereida ous duplex LE BI Accession Number(s): [id number] cc: Jayesh Waters MD EXAMINATION: US TRIPLEX LOWER EXTREMITY, BILATERAL CLINICAL INFORMATION: Bilateral leg edema COMPARISON: None available. TECHNIQUE: Color-flow triplex imaging with spectral analysis and compression Doppler were perform ed on the bilateral lower extremities. The exam is slightly limited as the left peroneal vein is not visualized. FINDINGS: Respiratory variatio n, normal compression and augmented flow are noted throughout the bilat eral lower extremities. The visualized common femoral vein, superficial femoral vein, profunda femoral vein, popliteal vein and midcalf right peroneal and bilateral posterior tibial venous segmen ts show no evidence of deep venous thrombosis bilaterally. There is no Castillo's cyst. U S/US venous duplex LE BI IMPRESSION: No evidence of deep venous thrombosis involving the bilateral lower extremities. Electronically mat d by: Fabrizio Trent MD 04/28/2024 12:57 PM EDT RP Dictated By: Adonay Trent MD Signed By: <Electronically signed by Adonay Trent MD in OV> 04/28/24 1257 DD/ 1223 TD/TT: 04/28/24 1237 [employer]ender: [place] XR chest 2V Reviewed date:04/28/2024 01:55:13 PM Interpretation: Performing Lab: Notes/Report: [address] [address] XRay Report Signed Patient: Navjot Tapia MR#: [id number] 300 : 1960 Acct:[id number] Age/Sex: 64 / M ADM Date: 04/28/24 Loc: HO. Attending Dr: Jayesh Waters MD Ordering Physician: Jayesh Waters MD Date of Service: 04/28/24 Procedure(s): XR chest 2V Accession Number(s): [id number] cc: Jayesh Waters MD EXAMINATION: XR CHEST CLINICAL INFORMATION: Right-sided pain COMPARISON: None available. TECHNIQUE: 2 views of the chest were obtained. FINDINGS: Heart and pulmonary vessels normal. Lungs clear. No pleural effusion. The osseous structures appear intact. There is spondylitic change in the thoracic spine. XR/XR chest 2V IMPRESSION: No active disease. Electronically signed by: Brigido Ferreira MD 04/28/2024 01:36 PM EDT RP Dictated By: Brigido Ferreira MD Signed By: <Electronically signed by Brigido Ferreira MD in OV> 04/28/24 1336 DD/ 1158 TD/TT: 04/28/24 1208 [employer] Tender: [address] [address] XRay Report Signed Patient: Holden Tapia MR#: [id number] 300 : 1960 Acct:[id number] Age/Sex: 64 / M ADM Date: 04/28/24 Loc: . Attending Dr: Jayesh Waters MD Ordering Physician: Jayesh Waters MD Date of Service: 04/28/24 Procedure(s): XR jorge l st 2V Accession Number(s): [id number] cc: Jayesh Waters MD EXAMINATION: XR CHEST CLINICAL INFORMATION: Right-sided pain COMPARISON: None available. TECHNIQUE: 2 views of the chest were obtained. FINDINGS: Heart and pulmonary vessels normal. Lungs clear. No pleural effusion. The osseous structur es appear intact. There is spondylitic change in the thoracic spine. X R/XR chest 2V IMPRESSION: No active disease. Electronically mat d by: Brigido Ferreira MD 04/28/2024 01:36 PM EDT RP Dictated By: Brigido Ferreira MD Signed By: <Electronically signed by Brigido Ferreira MD in OV> 04/28/24 1336 DD/ 1158 TD/TT: 04/28/24 1208 [employer] Tender: Pathology Reviewed date:10/13/2024 12:48:00 PM Interpretation: Performing Lab:[facility], [address] [place] [phone] Notes/Report: ---- Name: Navjot Tapia Age/Sex: 64/M : 1960 [id number]#: [id number] Attend Dr: Gibson Reddy MD Re09/25/24 Status : [facility] Location: [facility] Disch: ---- SPEC : [id number] RECD: 09/25/24-1224 STATUS: ANATona ELIZABETH NUM: [id number] CASEY: 09/25/24-[address] [facility] [address]: Gibson Reddy MD ENTERED: 09/25/24-12 32 SP TYPE: Surgical OTHR DR: Jayesh Waters MD ORDERED: HE Stain/6, Gross Micro L4/2, IHC, Special st. 2/2, H. pylori, AB/PAS/2 COMMENTS: 8 unstaine d slides sent to [facility] for [facility] on 09/30/24. Addendum Addendum 1 Entered: 10/13/24 [employer]: Risk c lass Low; risk score 3.2 See report in its entirety in the EMR - Reports/Pathology section as a scanned report (camera icon). If appropriate, a copy has also been sent to the ordering provider's office. Addendum Signed (signature on file) Lauren Tian MD 10/13/24 0947 ---- Diagnosis A. Gastroesophageal junction, biopsy: Bautista's esophagus and mild chronic active inflammation; negati ve for dysplasia. B. Stomach, polyps, biopsy: Fundic gland poly (s); negative for Helicobacter pylori, intestinal metaplasi a and dysplasia. Clinical History Pre-Op Dx: GERD, Bautista's esophagus without dysplasia Post-Op Dx: Hiatal hernia, reflux, gastric polyps Microscopic Description A-B. Microscopic sections examined. Intestinal metaplasia is highlighted by AB/PAS (A)); No metaplastic arango es are seen in part B, supported by AB/PAS stains; no Helicobacter organisms are seen, supported by H. pylori immunostain (B). Material Received A. EG junction at 39 h/o Bautista's B. Gastric polyps CONTINUED ON NEXT PAGE ---- Name: Navjot Tapia Age/Sex: 64/M : 1960 Unit#: [id number] Attend Dr: Gibson Reddy MD Re09/25/24 Status : [facility] Location: [facility] Disch: ---- SPEC : [id number] RECD: 09/25/24-1225 STATUS: KAREEM JOHNSON NUM: [id number] CASEY: 09/25/24-10[address] [facility] DR: Gibson Reddy MD ENTERED: 09/25/24-12 32 SP TYPE: Surgical OTHR DR: Jayesh Waters MD ORDERED: HE Stain/6, Gross Micro L4/2, IHC, Special st. 2/2, H. pylori, AB/PAS/2 COMMENTS: 8 unstaine d slides sent to [facility] for [facility] on 09/30/24. Gross Description Received in 2 parts. A. Received in forma billie labeled ?EG junction at 39 R/0 Bautista's? are 5 fragments of red- pink soft tissue measuring 0.3-0.4 cm in greatest dimension which are wrapped in lens paper and entirely submitt ed for microscopic examination, 5 pieces in cassette A. B. Received in forma billie labeled ?gastric polyps? are 2 fragments of pink white soft tissue measuring 0.3 and 0. 3 cm in greatest dimension which are wrapped in lens paper and entirely submitted for microscopic examination, 2 pieces in cassette B. smc Special stains order ed and performed: A/B PAS on A-B; immunostain for H pylori on B. Copies To: Jayesh Waters MD [facility] [address] [place], [place] [id number] Gibson Reddy MD [facility] [address] [place] [address] ---- Signed (signature on file) Lauren Tian MD 09/28/24 1500 ---- END OF REPORT Complete Blood Count Auto Di ff Reviewed date:12/27/2024 03:42:26 PM Interpretation: Performing Lab:[facility], [address] [place] [phone] Notes/Report: White Blood Count 6.3 4.8-10.8 X10*3/uL Red Blood Count 4.93 4.60-5.80 X10*6/uL Hemoglobin 14.8 14.0-18.0 g/dl Hematocrit 43.8 42.0-52.0 % Mean Corpuscular Volume 88.8 80.0-98.0 fL Mean Corpuscular Hemoglobin 30.0 27.0-33.0 pg Mean Corpuscular HGB Conc 33.8 31.0-36.0 g/dl Red Cell Distribution Width 13.3 11.0-16.0 % Platelet Count 229 160-400 X10*3/uL Mean Platelet Volume 8.7 9.4-12.4 fL Neutrophils Percent Auto 58.0 45-73 % Imm Gran Pct Auto 0.3 0.0-0.4 % Lymphocytes Percent Auto 28.5 20-40 % Monocytes Percent Auto 9.2 2-11 % Eosinophils Percent Auto 2.9 0-4 % Basophils Percent Auto 1.1 0-2 % NRBC Pct Auto 0.0 0.0-0.2 /100WBC Neutrophils Absolute Auto 3.7 2.0-8.3 x10*3/u L Imm Gran Abs Auto 0.02 0.00-0.03 X10*3/uL Lymphocytes Absolute Auto 1.8 1.2-4.9 X10*3/u L Monocytes Absolute Auto 0.6 0.1-1.2 X10*3/uL Eosinophils Absolute Auto 0.2 0.0-0.4 X10*3/u L Basophils Absolute Auto 0.1 0.0-0.2 X10*3/uL NRBC Abs Auto 0.000 0.0-0.012 X10*3/uL Comprehensive Met. Panel Reviewed date:12/27/2024 03:39:25 PM Interpretation: Performing Lab:[facility], [address] [place] [phone] Notes/Report: Sodium 141 135-145 mmol/L Potassium 4.3 3.3-5.1 mmol/L Chloride 107 96-108 mmol/L Carbon Dioxide 26 22-29 mmol/L Anion Gap 12 12-20 Blood Urea Nitrogen 10 9-16 mg/dL Creatinine 0.83 0.5-1.4 mg/dL Estimated Glomerular Filt Rate > 60 Chronic Kidney Disease: Estimated GFR < 60 mL/min/1.73m2 Severe Kidney Disease: Estimated GFR < 15 mL/min/1.73m2 Glucose Random 106 60-115 mg/dL Calcium 9.2 8.4-10.2 mg/dL Bilirubin Total 0.7 0.0-1.0 mg/dL Aspartate Amino Transferase 36 5-37 U/L Alanine Aminotransferase 38 0-40 U/L Total Protein 7.1 6.5-8.0 g/dL Albumin Level 4.4 3.5-5.0 g/dL Alkaline Phosphatase 88 39-117 U/L Lipase Reviewed date:12/27/2024 03:36:13 PM Interpretation: Performing Lab:[facility], [address] [place] [phone] Notes/Report: Lipase 13 8-78 U/L PSA,Total (Free>4and<10) Reviewed date:12/27/2024 03:36:25 PM Interpretation: Performing Lab:[facility], [address] [place] [phone] Notes/Report: PSA,Total (Free>4and<10) 0.38 0.00-4.00 ng/mL A Free PSA was not performed: The percentage of Free PSA can be used to enhance the differentiation of prostate cancer from benign prostatic disease in subjects whose PSA levels are between 4.0 and 10.0 ng/mL. For subjects whose PSA levels are below 4.0 or above 10.0 ng/mL, the risk of prostate cancer is determined on the basis of the PSA alone. Therefore the % Free PSA is recommended only for those subjects whose PSA levels are between 4.0 and 10.0 ng/mL. PSA methodology: Luristicnity i Chemiluminescent Microparticle Immunoassay (CMIA) UA ClnCatch+Micro w/rflx Cul t Reviewed date:01/07/2025 02:58:02 PM Interpretation:01-07-25 Performing Lab:[facility], [address] [place] [phone] Notes/Report: Urine, Clean Catch Color Urine Yellow Appearance Urine Clear PH 8.0 5.0-9.0 Glucose Urine UA Negative Negative mg/dL Urine Blood Trace Negative Specific [place] - Urine <= 1.005 1.005-1.025 Urine Protein Negative Neg-Trace mg/dL Urine Ketones Negative Negative mg/dL Nitrite Urine Negative Negative Leukocyte Esterase Urine Negative Negative RBC Urine 0-2 0-2 /HPF WBC Urine 0-5 0-5 /HPF Squamous Epithelial Cell Urine 0-2 0-2 /HPF Bacteria Urine None Seen None Seen Hyaline Casts Urine 0-2 0-2 /LPF Reason For Referral No Information Medications Medication SIG (Take, Route, Frequency, Duration) Notes Start Date End Date Status Furosemide 20 MG 1 tablet Orally Once a day for 30 days 04/28/2024 Not-Taking Rosuvastatin Calcium 40 mg TAKE 1 TABLET DAILY Active Omeprazole 20 mg TAKE 1 CAPSULE DAILY 30 MINUTES BEFORE MORNING MEAL oral daily for 10 days Active Immunizations Vaccine Route Administration Date Status Comme nts Flu Vaccine IM Intramuscular 06/08/2016 Administered pt wa s given the vaccine at [facility] in [place] Fluarix Quadrivalent Unknown 07/15/2017 Administered At work Fluarix Quadrivalent Unknown 06/09/2018 Administered At work Fluarix Quadrivalent IM Intramuscular 06/12/2019 Administered pt was given th e vaccine at [facility] in [facility]. Covid Vaccine Unknown 11/05/2020 Administered Moderna Covid Vaccine Unknown 12/03/2020 Administered Moderna Fluarix Quadrivalent IM Intramuscular 06/06/2021 Administered SARS-COV-2 Moderna Unknown 08/12/2021 Administered Fluarix Quadrivalent IM Intramuscular 06/22/2022 Administered Fluarix Quadrivalent IM Intramuscular 07/15/2023 Administered Social History Tobacco Use: Social History Observation [...] ast year? No Points 0 Interpretation Negative Problems Problem Type SNOMED Code ICD Code Onset Dates Problem Status W/U Status Risk Notes Problem 314867730 Neuropathy (G62.9) Active confirmed Problem Bautista esophagu s (K22.70) Active confirmed Problem 408949714 Family history o f diabetes mellitus (Z83.3) Active confirmed Problem 806696238 History of hemat uria (Z87.448) Active confirmed Problem 570722524 Non-rheumatic mi tral regurgitation (I34.0) Active confirmed Problem 967123998 Pure hypercholesterolemia (E78.00) Active confirmed Problem 240642575 BMI 32.0-32.9,ad ult (Z68.32) Active confirmed Problem 53611005 Hypertension, es sential (I10) Active confirmed Vital Signs Blood pressure diastolic 60 mm Hg 01/07/2025 Height 69 in 01/07/2025 Blood pressure systolic 132 mm Hg 01/07/2025 Weight 230 lbs 01/07/2025 BMI 33.96 kg/m2 01/07/2025 Encounters Encounter Location Date Provider Diagnosis Jayesh Waters MD [address] [place] [id number] 01/07/2025 Jayesh Waters Annual physical exam Z00.00 ; Family history of diabetes mellitus Z83.3 ; Pure hypercholesterolemia E78.00 ; History of hematuria Z87.448 ; Hypertension, essential I10 ; Colon cancer screening Z12.11 and Depression screening Z13.31 Jayesh Waters MD [address] [place] [id number] 04/28/2024 Jayesh Waters Swelling of lower le g M79.89 ; Rib pain R07.81 ; Cardiac murmur R01.1 ; Hypertension, essential I10 and Bilateral leg edema R60.0 Jayesh Waters MD [address] [place] [id number] 05/21/2024 Jayesh Waters Swelling of lower le g M79.89 and Cardiac murmur R01.1 Jayesh Waters MD [address] [place] [id number] 06/25/2024 Jayesh Waters Swelling of lower le g M79.89 and Cardiac murmur R01.1 Jayesh Waters MD [address] [place] [id number] 09/15/2024 Jayesh Waters Bautista esophagus K2 2.70 and Preoperative clearance Z01.818 Jayesh Waters MD [address] [place] [id number] 04/30/2024 Jayesh Waters Swelling of lower le g M79.89 Jayesh Waters MD [address] [place] [id number] 01/01/2025 Jayesh Waters Assessments Encounter Date Diagnosis (ICD Code) Assessment Notes Treatment Notes Treatment Clinical Notes Section Notes 01/07/2025 Annual physical exam (ICD-10 - Z00.00) [place] given [place] [facility] [place] 01/07/[place]25 Family history of diabetes mellitus (ICD-10 - Z83.3) good sugar 04/28/2024 Swelling of lower le g (ICD-10 - M79.89) patient verbalized understanding of medication and directions for use, hopefully this will decrease swelling 04/28/2024 Rib pain (ICD-10 - R07.81) order given to patient, pending diagnostic testing 05/21/2024 Swelling of lower le g (ICD-10 - M79.89) is doing much better 05/21/2024 Cardiac murmur (ICD- 10 - R01.1) awaiting echo. 06/25/2024 Swelling of lower le g (ICD-10 - M79.89) has resolved and is off the furosemeide 09/15/2024 Bautista esophagus (ICD-10 - K22.70) awaiting diagnostic testing 09/15/2024 Preoperative clearan ce (ICD-10 - Z01.818) patient healthy. cleared for endoscopy/ echo had no significant cardiac disease 04/30/2024 Swelling of lower le g (ICD-10 - M79.89) 01/07/2025 Pure hypercholesterolemia (ICD-10 - E78.00) well controlled 04/28/2024 Cardiac murmur (ICD- 10 - R01.1) [place] [facility] [place], pending diagnostic testing 06/25/2024 Cardiac murmur (ICD- 10 - R01.1) echo is normal no valvular pathology 01/07/2025 History of hematuria (ICD-10 - Z87.448) has been evaluted 04/28/2024 Hypertension, essent ial (ICD-10 - I10) given Furosemide for swelling, hopefully this will help lower the BP, will continue to monitor BP 01/07/2025 Hypertension, essent ial (ICD-10 - I10) doing well on meds 04/28/2024 Bilateral leg edema (ICD-10 - R60.0) being done 04-28-2024, pending diagnostic testing 01/07/2025 Colon cancer screeni ng (ICD-10 - Z12.11) guaiac negative 01/07/2025 Depression screening (ICD-10 - Z13.31) negative screen Plan Of Treatment Pending Test Test Name Order Date Electrocardiogram (EKG) 08/04/2015 Electrocardiogram (EKG) 08/23/2016 XR CHEST 2 VIEW PA & LAT 04/28/2024 US SOFT TISSUE 12/05/2012 US LEG BILATERAL VENOUS DOPPLER 04/28/20 ECHO 04/28/2024 ECHO 12/08/2020 Liver Panel 01/07/2025 Lipid Panel with Reflex 01/07/2025 Next Appt Details Provider Name:Jayesh fraire, 07/08/2025 07:15:00 AM, [address] [place] [address], [address], [phone], Provider Name:Jayesh fraire, 07/15/2025 03:30:00 PM, [address] [place] [address], [address], [phone], Provider Name:Jayesh larar, 01/04/2026 07:15:00 AM, [address] [place] [address], [place] [address], [place], [place], [phone], Provider Name:Jayesh larar, 01/11/2026 03:00:00 PM, [address] [place] [address], [address], [phone], Insurance Providers Payer Name Payer Address Payer Phone Subscriber Number Group Number Insured Name Patient Relationship to Insured Coverage Start Date Coverage End Date [employer] [address] [place], [place] [phone] [phone] [id number] Navjot Tapia Self - patient is the insured Medical (General) History Medical History History ICD Code Refuses flu shot (11-19-12) colonoscopy 08/2009 was normal 2013 - cysto (results l imited - Dr. Diane suggested repeat); not able to do. colonoscopy 03/10/21 awaiting path 5--10y r f/u morena omalley. had endo 2020. repeat [address] REDDY COLONOSCOPY DUE 02/2031
--- OUTSIDE RECORDS SUMMARY | 2025-01-12 08:34 | XMS_ITS | Patient Health Record ---
Author Organization [facility] Address [address] [place] [address] Care Team Providers Care Plasma Table Operator Name Role Phone Jt CHERY, Jayesh Primary Care Provider Gibson Villela Unavailable [phone] Allergies No Known Allergies Results Component Value Reference Range Notes Pathology (Not yet reviewed by provider) Interpretation: Performing Lab:[facility], [address] [place] [phone] Notes/Report: Name: Navjot Tapia Marci Age/Sex: 64/M : 1960 Unit#: [id number] Attend Dr: Gibson Reagan MD Re09/25/24 Status : [facility] [place] [facility] Disch: SPEC : [id number] RECD: 09/25/24-1225 STATUS: KAREEM JOHNSON NUM: [id number] CASEY: 09/25/24-[address]: Gibson Reagan MD ENTERED: 09/25/24-12 32 SP TYPE: Surgical OTHR DR: Jayesh Waters MD ORDERED: HE Stain/6, Gross Micro L4/2, IHC, Special st. 2/2, H. pylori, AB/PAS/2 COMMENTS: 8 unstaine d slides sent to [employer] for [employer] on 09/30/24. Addendum Addendum 1 Entered: 10/13/24 [employer]: Risk c lass Low; risk score 3.2 See report in its en tirety in the EMR - Reports/Pathology section as a scanned report (camera icon). If ap propriate, a copy has also been sent to the ordering provider's office. Addendum Signed ____ __(signature on file) Lauren Tian MD 10/13/24946 Diagnosis A. Gastroesophageal junction, biopsy: Bautista's esophagus and mild chronic active inflammation; negati ve for dysplasia. B. Stomach, polyps, biopsy: Fundic gland poly (s); negative for Helicobacter pylori, intestinal metaplasi a and dysplasia. Clinical History Pre-Op Dx: GERD, Bar rett's esophagus without dysplasia Post-Op Dx: Hiatal h ernia, reflux, gastric polyps Microscopic Description A-B. Microscopic sec tions examined. Intestinal metaplasia is highlighted by AB/PAS (A)); No metaplastic arango es are seen in part B, supported by AB/PAS stains; no Helicobacter organisms are seen, supported by H. pylori immunostain (B). Material Received A. EG junction at 39 h/o Bautista's B. Gastric polyps CONTINUED ON NEXT PAGE Name: Navjot Tapia Age/Sex: 64/M : 1960 Unit#: [id number] Attend Dr: Gibson Reagan MD Re09/25/24 Status : [facility] Location: [facility] Disch: SPEC : [id number] RECD: 09/25/24-1225 STATUS: KAREEM JOHNSON NUM: [id number] CASEY: 09/25/24-[address] [facility] [address]: Gibson Reagan MD ENTERED: 09/25/24-12 32 SP TYPE: Surgical OTHR DR: Jayesh Waters MD ORDERED: HE Stain/6, Gross Micro L4/2, IHC, Special st. 2/2, H. pylori, AB/PAS/2 COMMENTS: 8 unstaine d slides sent to [employer] for [employer] on 09/30/24. Gross Description Received in 2 parts. A. Received in form patrick labeled ?EG junction at 39 R/0 Bautista's? are 5 fragments of red- pink soft tissue mehrdad suring 0.3-0.4 cm in greatest dimension which are wrapped in lens paper and entirely submitt ed for microscopic examination, 5 pieces in cassette A. B. Received in forma billie labeled ?gastric polyps? are 2 fragments of pink white soft tissue measuring 0.3 and 0. 3 cm in greatest dimension which are wrapped in lens paper and entirely submitted for micros copic examination, 2 pieces in cassette B. [facility] Special stains order ed and performed: A/B PAS on A-B; immunostain for H pylori on B. Copies To: Jayesh Waters MD [facility] [address] [place], [place] [phone] Gibson Reagan MD [facility] [address] [place] [address] Signed (si gnature on file) Lauren Tian MD 09/28/24 1500 END OF REPORT Reason For Referral No Information Medications Medication SIG (Take, Route, Frequency, Duration) Notes Start Date End Date Status Omeprazole 20 MG 1 capsule 30 minutes before morning meal Orally Once a day for 30 day(s) Active Motrin PRN Active Atorvastatin Calcium 40 MG 1 tablet Oral ly Once a day for 30 day(s) Active Immunizations Vaccine Route Administration Date Status Comme nts Influenza Unknown 05/06/2024 Administered Influenza Unknown 02/08/2021 Refused Social History Tobacco Use: Social History Observation Description Date Details (start date - stop date) Never Smoker NA - NA Tobacco Use/Smoking Question Answer Notes Patient is a nonsmoker Alcohol Screen Question Answer Notes Did you have a drink containing alcohol in the p ast year? No Points 0 Interpretation Negative Section Notes: Nonsmoker; no sig alcohol Nonsmoker; no sig alcohol Problems Problem Type SNOMED Code ICD Code Onset Dates Problem Status W/U Status Risk Notes Problem Esophageal reflux (084707400) Esophageal reflux (K21.9) Active confirmed Problem 662573973 Encounter for screening for malignant neoplasm of colon (Z12.11) Active confirmed Problem 63851290 Abdominal pain, epigastric (R10.13) Active confirmed Problem Gastroesophageal reflux disease without esophagitis (K21.9) Active confirmed Problem Benign neoplasm of stomach (74758330) Gastric polyps (K31.7) Active confirmed Problem Diverticular disease of colon (874174332) Diverticular disease of colon (K57.30) Active confirmed Problem 025834808 Family history o f esophageal cancer (Z80.0) Active confirmed Problem Bautista's esophagus (308588574) 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) Active confirmed Problem 256472695 Gastroesophageal reflux disease, unspecified whether esophagitis present (K21.9) Active confirmed Vital Signs Temperature 97.5 degrees Fahrenheit 05/20/2024 Blood pressure diastolic 00 mm Hg 05/20/2024 Height 69 in 05/20/2024 Blood pressure systolic 000 mm Hg 05/20/2024 Weight 234 lb 4 oz lbs 05/20/2024 BMI 34.59 kg/m2 05/20/2024 Encounters Encounter Location Date Provider Diagnosis [facility] [place] [address] [place] [phone] 09/25/2024 Gibson Reagan Bautista''s esophagus without dysplasia K22.70 ; Gastroesophageal reflux disease without esophagitis K21.9 and Gastric polyps K31.7 [facility] [address] [place] [phone] 05/20/2024 Gibson Reagan Bautista''s esophagus without dysplasia K22.70 and Gastroesophageal reflux disease, unspecified whether esophagitis present K21.9 [facility] [address] [place] [phone] 08/10/2024 Gibson Reagan Assessments Encounter Date Diagnosis (ICD Code) Assessment Notes Treatment Notes Treatment Clinical Notes Section Notes 09/25/2024 Gastroesophageal reflux disease without esophagitis (ICD-10 - K21.9) 09/25/2024 Bautista''s esophagus without dysplasia (ICD-10 - K22.70) 05/20/2024 Bautista''s esophagus without dysplasia (ICD-10 - K22.70) Overall, Navjot appears well. I did review the findings on his upper endoscopy and colonoscopy from 2020 with him in detail. Based on the colonoscopy findings of only a hyperplastic polyp I advised him of the need for a followup colonoscopy in 2030 for a 10 year followup and further colorectal cancer screening. We did review the findings of the small area of Bautista's esophagus and the theoretical increased risk of esophageal cancer. I did recommend a followup upper endoscopy for further surveillance biopsies given the exam being over 3 years ago. Full consent was obtained for this, including risks of bleeding and perforation. The procedure will be done with monitored anesthesia care. I did advise him to continue his omeprazole joint terminal attack controller for acid suppression and relief of heartburn. Navjot was comfortable with this plan. Thank you again for allowing me to participate in Navjot's care. I shall continue to keep you advised of his progress. 05/20/2024 Gastroesophageal reflux disease, unspecified whether esophagitis present (ICD-10 - K21.9) Overall, Navjot appears well. I did review the findings on his upper endoscopy and colonoscopy from 2020 with him in detail. Based on the colonoscopy findings of only a hyperplastic polyp I advised him of the need for a followup colonoscopy in 2030 for a 10 year followup and further colorectal cancer screening. We did review the findings of the small area of Bautista's esophagus and the theoretical increased risk of esophageal cancer. I did recommend a followup upper endoscopy for further surveillance biopsies given the exam being over 3 years ago. Full consent was obtained for this, including risks of bleeding and perforation. The procedure will be done with monitored anesthesia care. I did advise him to continue his omeprazole joint terminal attack controller for acid suppression and relief of heartburn. Navjot was comfortable with this plan. Thank you again for allowing me to participate in Navjot's care. I shall continue to keep you advised of his progress. 09/25/2024 Gastric polyps (ICD-10 - K31.7) Plan Of Treatment Pending Test Test Name Order Date US ABD 02/08/2021 Pathology 09/25/2024 Future Test Test Name Order Date UPPER GI ENDOSCOPY 02/08/2021 COLONOSCOPY 02/08/2021 UPPER GI ENDOSCOPY 05/20/2024 Insurance Providers Payer Name Payer Address Payer Phone Subscriber Number Group Number Insured Name Patient Relationship to Insured Coverage Start Date Coverage End Date [facility] [address] [place], [place] [id number] NAVJOT TAPIA Self - patient is the insured Medical (General) History Medical History History ICD Code Hyperlipidemia GERD Denies CA,DM,CVA,Lung disease,renal dise ase EGD reportedly negative over 10 years ag o Colonoscopy reportedly negative over 10 years ago Negative screening colonosco py in February of 2021 except for a hyperplastic polyp Upper endoscopy in February revealed a small hiatal hernia, benign gastric hyperplastic polyps, and mild changes of reflux with small areas of Bautista's mucosa noted. Biopsies from the Bautista's esophagus were negative for dysplasia. There was no esophagitis. Surgical History Surgery Date(Month/Year) Hemorrhoids
--- OUTSIDE RECORDS SUMMARY | 2025-01-12 08:35 | XMS_ITS ---
Author Organization [facility] Address [address] [place] [address] Care Team Providers Care Policy Analyst Name Role Phone Jayesh Waters MD Primary Care Provider Gibson Villela [phone] Allergies No Known Allergies REASON FOR VISIT Patient presents today for an upperendoscopy Medications Medication SIG (Take, Route, Frequency, Duration) Notes Start Date End Date Status Omeprazole 20 MG 1 capsule 30 minutes before morning meal Orally Once a day for 30 day(s) Active Motrin PRN Active Atorvastatin Calcium 40 MG 1 tablet Oral ly Once a day for 30 day(s) Active Social History Tobacco Use: Social History Observation Description Date Details (start date - stop date) Never Smoker NA - NA Tobacco Use/Smoking Question Answer Notes Patient is a nonsmoker Alcohol Screen Question Answer Notes Did you have a drink containing alcohol in the p ast year? No Points 0 Interpretation Negative Section Notes: Nonsmoker; no sig alcohol Problems Problem Type SNOMED Code ICD Code Onset Dates Problem Status W/U Status Risk Notes Problem Bautista's esophagus (475058286) 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) Active confirmed Vital Signs Temperature 97.5 degrees Fahrenheit 05/20/20 24 Blood pressure systolic 000 mm Hg 05/20/20 24 Blood pressure diastolic 00 mm Hg 024 Height 69 in 05/20/2024 Weight 234 lb 4 oz lbs 05/20/2024 BMI 34.59 kg/m2 05/20/2024 Encounters Encounter Location Date Provider Diagnosis [facility] [address] [place] [phone] 05/20/2024 Gibson Reagan Bautista''s esophagus without dysplasia K22.70 and Gastroesophageal reflux disease, unspecified whether esophagitis present K21.9 Assessments Encounter Date Diagnosis (ICD Code) Assessment Notes Treatment Notes Treatment Clinical Notes Section Notes 05/20/2024 Bautista''s esophagus without dysplasia (ICD-10 - [...] did advise him to continue his omeprazole lobsterman for acid suppression and relief of heartburn. [...] did advise him to continue his omeprazole [facility] for acid suppression and relief of heartburn. Navjot was comfortable with this plan. Thank you again for allowing me to participate in Navjot's care. I shall continue to keep you advised of his progress. Plan Of Treatment Medication Medication Name Sig Start Date Stop Date Notes Omeprazole 20 MG 1 capsule 30 minutes before morning meal Orally Once a day for 30 day(s) Future Test Test Name Order Date UPPER GI ENDOSCOPY 05/20/2024 Next Appt Details Follow Up: prn, Reason: Progress Notes * LASHELL HARRISNEDOB:1960 (64 yo M)Acc No.[id number]:05/20/2024 Progress Notes Patient:?NAVJOT HARRIS Provider:?Gibson Reagan MD :1960???Age:64 Y???Sex:Male Shimon e:05/20/2024 Address:[address] [place] [address] Pcp:Jayesh Waters MD Subjective: * Chief Complaints: * ???Patient presents today fo r an upperendoscopy * HPI: ???incontinence:? I saw Navjot in consultation today regarding further evaluation of his chronic gastroesophageal reflux and history of Bautista's esophagus, as well as his family history of esophageal cancer. ?I last saw Navjot in February of 2021, at which time he underwent an upper endoscopy and screening colonoscopy. The colonoscopy was negative except for a hyperplastic polyp. The upper endoscopy revealed a small hiatal hernia and tiny area of Bautista's esophagus, but there was no evidence of any esophagitis and biopsies from the Bautista's esophagus were negative for dysplasia. ?He has continued on his daily omeprazole with good relief of previous reflux symptoms. He denies any significant heartburn, dysphagia, anorexia, early satiety, nausea, or vomiting. He denies abdominal pain, jaundice, nor unintentional weight loss. His bowel movements are regular and without any signs of bleeding. ?His family history is notable for a brother and sister both having had esophageal cancer. He reports that they were both treated for that with surgery and have done well in that regard, although his sister from something unrelated to the esophageal cancer. There is no family history of colorectal cancer. * ROS:?General/Constitutional:?Change in appetite?denies.?Chills?denies.?Fatigue?denies.?Ophthalmologic:?Comments?all negative.?ENT:?Comments?all negative.?Respiratory:?hemoptysis?denies.?Cough?denies.?Cardiovascular:?Chest pain?denies.?Orthopnea?denies.?Gastrointestinal:?Comments?See HPI for details.?Genitourinary:?Hematuria?denies.?Dysuria?denies.?Musculoskeletal:?Painful joints?denies.?Weakness?denies.?Skin:?Itching?denies.?Rash?denies.?Neurologic:?Headache?denies.?Seizures?denies.?Psychiatric:?Comments?all negative.? * Medical History:? * Surgical History:?Hemorrhoid s * Hospitalization/Major Diagno stic Procedure:?No Hospitalization History. * Family History:?Father: dece ased.?Mother: .? Brother had esophageal cancer Sister had esophageal cancer Denies family hx of colon cancer, colon polyps or liver ds. * Social History:?Tobacco Use:?Tobacco Use/Smoking?Patient is a?nonsmoker.?Drugs/Alcohol:?Alcohol Screen?Did you have a drink containing alcohol in the past year??No,?Points?0,?Interpretation?Negative.?Miscellaneous:?Marital status: single. 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 ???Nonsmoker; no sig alcohol. * Medications:?TakingOmeprazol e 20 MG Capsule Delayed Release 1 capsule 30 minutes before morning meal Orally Once a dayAtorvastatin Calcium 40 MG Tablet 1 tablet Orally Once a dayMotrin , Notes: PRNMedication List reviewed and reconciled with the patientTaking Omeprazole 20 MG Capsule Delayed Release 1 capsule 30 minutes before morning meal Orally Once a dayTaking Atorvastatin Calcium 40 MG Tablet 1 tablet Orally Once a dayTaking Motrin , Notes: PRNMedication List reviewed and reconciled with the patient * Allergies:?N.K.D.A.yes[Aller gies Verified] Objective: * Vitals:?Wt: 234 lb 4 oz, Ht: 69 in, BMI:34.59 Index, BP: 000/00 mm Hg, Temp: 97.5. * Examination: ???General Examination: ?GENERAL APPEARANCE:?pleasant, well nourished, well developed, in no acute distress.?EYES:?sclera non-icteric.?ORAL CAVITY:?mucosa moist.?NECK/THYROID:?no cervical lymphadenopathy, neck supple.?SKIN:?nonjaundiced, no spider angiomata.?HEART:?S1, S2 normal.?LUNGS:?clear to auscultation bilaterally.?ABDOMEN:?normal bowel sounds, no guarding or rigidity, no guarding or rigidity, no masses palpable, soft, nontender, nondistended.?EXTREMITIES:?no edema.?NEUROLOGIC:?alert and oriented.? Assessment: * Assessment: 1.?Bautista''s esophagus with out dysplasia - K22.70 (Primary)?2.?Gastroesophageal reflux disease, unspecified whether esophagitis present - K21.9? Overall, Navjot appears well. I did review [...] did advise him to continue his omeprazole lobsterman for acid suppression and relief of heartburn. Navjot was comfortable with this plan. Thank you again for allowing me to participate in Navjot's care. I shall continue to keep you advised of his progress. Plan: * Treatment: 2.?Gastroesophageal reflux disease, unspecified whether esophagitis present?Procedure: UPPER GI ENDOSCOPY (Ordered for 05/20/2024)* with Marissa Gandara 04/27 07:32:18 AM EDT > Pt's Upper Endo scheduled for Saturday09/25/24 at 11:30am. Thanks 3.?Others? Refill Omeprazole Capsule Delayed Release, 20 MG, 1 capsule 30 minutes before morning meal, Orally,Once a day, 30 day(s), 30.?? * Procedure Codes:?3017F COLOR ECTAL CA SCREEN DOC [id number] TOBACCO NON-IPFCY8413 BP SCR NOT PRFRM REC REASON NOS * Preventive Medicine:? ??Counseling:?Care goal follow-up plan:?Above Normal BMI Follow-up?Giving encouragement to exercise,?BMI management provided?Yes.? ??Screenings:?Fall Risk Screening?Fall Risk Assessment:?No falls in the past year.? * Follow Up:?prn * * Sign off status: Completed true * Provider:?Gibson Reagan MD Date:? 024 Generated for Kishor singh/Frederick/eTransmitting on:?01/12/2025 08:34 AM EDT History and Physical Notes * HPI (History of Present Illness) Category Sub-Category Detail Notes Category Not es incontinence I saw Navjot in consultation today regarding further evaluation of his chronic gastroesophageal reflux and history of Bautista's esophagus, as well as his family history of esophageal cancer. I last saw Navjot in February of 2021, at which time he underwent an upper endoscopy and screening colonoscopy. The colonoscopy was negative except for a hyperplastic polyp. The upper endoscopy revealed a small hiatal hernia and tiny area of Bautista's esophagus, but there was no evidence of any esophagitis and biopsies from the Bautista's esophagus were negative for dysplasia. He has continued on his daily omeprazole with good relief of previous reflux symptoms. He denies any significant heartburn, dysphagia, anorexia, early satiety, nausea, or vomiting. He denies abdominal pain, jaundice, nor unintentional weight loss. His bowel movements are regular and without any signs of bleeding. His family history is notable for a brother and sister both having had esophageal cancer. He reports that they were both treated for that with surgery and have done well in that regard, although his sister from something unrelated to the esophageal cancer. There is no family history of colorectal cancer. Examination Category Sub-Category Detail Notes Category Not es General Examination GENERAL APPEARANCE: pleasant , well nourished, well developed, in no acute distress HEAD: EYES: sclera non-icteric EARS: NOSE: THROAT: NECK/THYROID: no cervical lymphade nopathy, neck supple HEART: S1, S2 normal CHEST: LUNGS: clear to auscultatio n bilaterally ABDOMEN: normal bowel sounds, no guarding or rigidity, no guarding or rigidity, no masses palpable, soft, nontender, nondistended NEUROLOGIC: alert and oriented SKIN: nonjaundiced, no spi trini angiomata EXTREMITIES: no edema PERIPHERAL PULSES: BACK: BREASTS: MUSCULOSKELETAL: MALE GENITOURINARY: LYMPH NODES: RECTAL EXAM: FEMALE GENITOURINARY: ORAL CAVITY: mucosa moist
--- OUTSIDE RECORDS SUMMARY | 2025-01-12 08:35 | XMS_ITS ---
Author Organization [facility] Address [address] [place] [phone] Care Team Providers Care Test Desk Trouble Locator Name Role Phone Jt CHERY, Jayesh Primary Care Provider Gibson Villela Unavailable [phone] REASON FOR VISIT Bautista's esophagus without dysplasia, esophageal reflux Problems Problem Type SNOMED Code ICD Code Onset Dates Problem Status W/U Status Risk Notes Problem Gastroesophageal reflux disease without esophagitis (K21.9) Active confirmed Encounters Encounter Location Date Provider Diagnosis [facility] [place] Out[place] [address] [place] [phone] 09/25/2024 Gibson Reagan Bautista''s esophagus without dysplasia [...] Of Treatment No Information Progress Notes * TOSHIA HARRISOB:1960 (64 yo M)Acc No.[id number]:09/25/2024 EGD/MAC Patient:?ELIAS HARRIS Provider:?Gibson Reagan MD :1960???Age:64 Y???Sex:Male Shimon e:09/25/2024 Address:[address] [place], [place] [phone] Pcp:Jayesh Waters MD Subjective: * Chief Complaints: * ???1. Bautista's esophagus wi thout dysplasia, esophageal reflux. * Medical History:? Objective: * Vitals:? Assessment: * Assessment: 1.?Bautista''s esophagus with out dysplasia - K22.70 (Primary)???2.?Gastroesophageal reflux disease without esophagitis - K21.9???3.?Gastric polyps - K31.7??? Plan: * Treatment: * Procedure Codes:?17172 UPPER GI ENDOSCOPY, BIOPSY * * The named appointment provid er may or may not be the originator of this progress note, and it is not deemed complete until electronically signed by the appointment provider. Sign off status: Pending * Provider:?Gibson Reagan MD Date:? 025 Generated for Kishor singh/Frederick/Joanneitting on:?01/12/2025 08:35 AM EDT
--- OUTSIDE RECORDS SUMMARY | 2025-01-12 08:35 | XMS_ITS ---
Author Organization Jayesh Waters MD Address [address] [place], [place] [phone] Care Team Providers Care Qa Specialist Name Role Phone Jayesh Waters Primary Care Provider REASON FOR VISIT FASTING LABS Encounters Encounter Location Date Provider Diagnosis Jayesh Waters MD [address] [place] [phone] 12/31/2024 Jayesh Waters Blood tests for rout [...] Complete Blood Count Auto Diff 5 Comprehensive [place]. Panel Fast 5 Lipid Panel 12/31/2024 PSA,Total (Free>4and<10) 12/31/2024 UA ClnCatch+Micro w/rflx Cult 12/31/2024 Next Appt Details Provider Name:Jayesh Mckenna ier, 07/08/2025 07:15:00 AM, [address], [address], [place], [phone], Provider Name:Jayesh Mckenna ier, 07/15/2025 03:30:00 PM, [address], [address], [place], [phone], Provider Name:Jayesh Mckenna ier, 01/04/2026 07:15:00 AM, [address], [address], [place], [phone], Provider Name:Jayesh Mckenna ier, 01/11/2026 03:00:00 PM, [address], [address], [place], [phone], Progress Notes * Navjot TAPIA RDOB:[birth year] (64 yo M)Acc No.[id number]:12/31/2024 Progress Note Patient:?STEVEN Navjot R Provider:?Jayesh Waters MD :1960???Age:64 Y???Sex:Male Shimon e:12/31/2024 Address:[address] [place], [place] [phone] Subjective: * Chief Complaints: * ???1. FASTING LABS. * Medical History:? Objective: * Vitals:? Assessment: * Assessment: 1.?Blood tests for routine g eneral physical examination - Z00.00 (Primary)???2.?Pure hypercholesterolemia - E78.00???3.?Hypertension, essential - I10??? Plan: * Treatment: 2.?Pure hypercholesterolemia ?LAB: Complete Blood Count Auto Diff ?LAB: [facility] [place]. Panel Fast ?LAB: Lipid Panel ?LAB: PSA,Total (Free>4and<10) ?LAB: UA ClnCatch+Micro w/rflx Cult 3.?Hypertension, essential?LAB: Complete Blood Count Auto Diff ?LAB: [facility] [place]. Panel Fast ?LAB: Lipid Panel ?LAB: PSA,Total (Free>4and<10) ?LAB: UA ClnCatch+Micro w/rflx Cult * * The named appointment provid er may or may not be the originator of this progress note, and it is not deemed complete until electronically signed by the appointment provider. Sign off status: Pending * Provider:?Jayesh Waters MD Date:?0 12/31/2024 Generated for Kishor singh/Frederick/Marcelo on:?01/12/2025 08:35 AM EDT
--- OUTSIDE RECORDS SUMMARY | 2025-01-12 08:35 | XMS_ITS ---
Author Organization Jayesh Waters MD Address [address] [place], [place] [phone] Care Team Providers Care Catalog Specialist Name Role Phone Jayesh Waters Primary Care Provider [phone] Allergies No Known Allergies Results Component Value Reference Range Notes Occult Blood, Stool, Guaiac Reviewed date:01/07/2025 03:26:26 PM Interpretation:Negative Performing Lab: Notes/Report: Negative Occult Blood, Stool, Guaiac Neg REASON FOR VISIT ANNUAL EXAM/ must see [...] Location Date Provider Diagnosis Jayesh Waters MD [address] [place] [address] Drive [address] [place] [phone] 01/07/2025 Jayesh Waters Annual physical exam Z00.00 [...] to the patient to be done at [facility] 01/07/2025 Family history of diabetes mellitus (ICD-10 [...] to the patient to be done at [facility] Family history of diabetes mellitus good sugar Pure hypercholesterolemia well controlle d History of hematuria has been evaluted Hypertension, essential doing well on me ds Colon cancer screening guaiac negative Depression screening negative screen Pending Test Test Name Order Date Liver Panel 01/07/2025 Lipid Panel with Reflex 01/07/2025 Next Appt Details Follow Up: 6 Months, Reason: Provider Name:Jayesh fraire, 07/08/2025 07:15:00 AM, [address] [place] [address], Suite [facility], [place], [place], [phone], Provider Name:Jayesh fraire, 07/15/2025 03:30:00 PM, [address] [place] [address], [address], [place], [place], [phone], Provider Name:Jayesh Mckenna ier, 01/04/2026 07:15:00 AM, [address], [address], [place], [phone], Provider Name:Jayesh Mckenna marcor, 01/11/2026 03:00:00 PM, [address], [address], [place], [phone], Progress Notes * Navjot TAPIA RDOB:[birth year] (64 yo M)Acc No.[id number]:01/07/2025 Progress Notes Patient:?Navjot TAPIA R Provider:?Jayesh Waters MD :1960???Age:64 Y???Sex:Male Shimon e:01/07/2025 Address:[address] [place], [place] [phone] Subjective: * Chief Complaints: * ???1. ANNUAL EXAM/ must see urine. * HPI: ???Depression Screening:?PHQ-9?Little interest or pleasure in doing things?Not at all,?Feeling down, depressed, or hopeless?Not at all,?Trouble falling or staying asleep, or sleeping too much?Not at all,?Feeling tired or having little energy?Not at all,?Poor appetite or overeating?Not at all,?Feeling bad about yourself or that you are a failure, or have let yourself or your family down?Not at all,?Trouble concentrating on things, such as reading the newspaper or watching television?Not at all,?Moving or speaking so slowly that other people could have noticed; or the opposite, being so fidgety or restless that you have been moving around a lot more than usual?Not at all,?Thoughts that you would be better off or of hurting yourself in some way?Not at all,?Total Score?0.?Interpretation and Intervention?Depression Screening Findings?Negative,?Follow-Up for Depression?: review of PHQ-9 found negative result, no follow-up needed.?Communication Needs:?Communication Needs?Does the patient have a hearing impairment?No,?Does the patient have a vision impairment??Yes,?If yes, what is the vision impairment??Glasses,?Does the patient have a cognition impairment??No.?Fall Risk:?History?Have you had any falls with injury in the past year??No,?Have you had two or more falls in the past year??No.?SDOH Questions:?SDOH Questions?In the past year have you been worried about losing housing??No,?In the past year have you or any family members you live with been unable to get any of the following when it was really needed? Check all that apply:?None.?Symptom(s):? patient is a 64 yo male here for annual visit with review of recent labs and follow up of chronic issues. * ROS:?General/Constitutional:?Change in appetite?denies.?Chills?denies.?Fever?denies.?Ophthalmologic:?Blurred vision?denies.?Discharge?denies.?Pain?denies.?ENT:?Decreased hearing?denies.?Sore throat?denies.?Swollen glands?denies.?Endocrine:?Cold intolerance?denies.?Excessive thirst?denies.?Heat intolerance?denies.?Weight loss?denies.?Respiratory:?Cough?denies.?Shortness of breath at rest?denies.?Shortness of breath with exertion?denies.?Wheezing?denies.?Cardiovascular:?Chest pain at rest?denies.?Chest pain with exertion?denies.?Irregular heartbeat?denies.?Shortness of breath?denies.?Gastrointestinal:?Abdominal pain?denies.?Change in bowel habits?denies.?Diarrhea?denies.?Nausea?denies.?Rectal bleeding?denies.?Vomiting?denies .?Genitourinary:?Blood in urine?denies.?Difficulty urinating?denies.?Frequent urination?denies.?Musculoskeletal:?Painful joints?denies.?Weakness?denies.?Skin:?Dry skin?denies.?Itching?denies.?Denies?Mole(s),? changes in moles, new moles or any lesions of concern.?Denies?Photosensitivity.?Rash?denies.?Neurologic:?Dizziness?denies.?Fainting?denies.?Headache?denies.? * Medical History:?Refuses flu shot (07-14-12), Colonoscopy 08/2009 was normal, 2013 - cysto (results limited - Dr. Diane suggested repeat); not able to do. , Colonoscopy 03/10/21 awaiting path 5--10yr f/u, Oliverio novakoph. had endo 2020. repeat 2023, PER DR REDDY COLONOSCOPY DUE 02/2031. * Family History:?Father: dece ased 75 yrs, diagnosed with Cancer.?Mother: 90 yrs, natural causes.?2 brother(s) , 1 sister(s) . 2 daughter(s) . .? Father- lung cancer Mother old age, Denies mental health/substance abuse family history, Denies mental health/substance abuse family history, Denies mental health/substance abuse family history, Denies mental health/substance abuse family history. * Social History:?Tobacco Use:?Tobacco Use/Smoking?Patient is a?nonsmoker,?Additional Findings: Tobacco Non-User?Current non-smoker, currently using no form of tobacco.?Drugs/Alcohol:?Alcohol Screen?Did you have a drink containing alcohol in the past year??No,?Points?0,?Interpretation?Negative.?Miscellaneous:?Caffeine: yes, frequency:, 1-2 cups per day. Children: yes. Community involvements: yes, belongs to [employer] group. Exercise: yes, 1-2 times per week sit ups. Housing: owning. Living with: with daughter. Marital status: . Occupation: works full-time. Travel outside of the [place]: no. * Medications:?Taking Rosuvast atin Calcium 40 mg Tablet TAKE 1 TABLET DAILY , Taking Omeprazole 20 mg Capsule Delayed Release TAKE 1 CAPSULE DAILY 30 MINUTES BEFORE MORNING MEAL oral daily , Not-Taking/PRN Furosemide 20 MG Tablet 1 tablet Orally Once a day , Medication List reviewed and reconciled with the patient * Allergies:?N.K.D.A. Objective: * Vitals:?Ht: 69, Wt: 230, BMI :33.96, BP:132/60, Wt-k.33. * ???Past Orders: ???Lab:PSA,Total (Free>4and< 10) (Order Date - 12/26/2024) (Collection Date & Time - 12/26/2024 09:36 AM) ? Value Reference Range ?PSA,Total (Free>4and<10) 0.38 0.00-4.00 - ng/mL ???Lab:Complete Blood Count Auto Diff (Order Date - 12/26/2024) (Collection Date & Time - 12/26/2024 09:36 AM) ? Value Reference Range ?White Blood Count 6.3 4. 8-10.8 - X10*3/uL ?Red Blood Count 4.93 4.60 -5.80 - X10*6/uL ?Hemoglobin 14.8 14.0-18.0 - g/dl ?Hematocrit 43.8 42.0-52.0 - % ?Mean Corpuscular Volume 88.8 80.0-98.0 - fL ?Mean Corpuscular Hemoglobin 30.0 27.0-33.0 - pg ?Mean Corpuscular HGB Conc 33.8 31.0-36.0 - g/dl ?Red Cell Distribution Width 13.3 11.0-16.0 - % ?Platelet Count 229 160-4 00 - X10*3/uL ?Mean Platelet Volume 8.7 L 9.4-12.4 - fL ?Neutrophils Percent Auto 58.0 45-73 - % ?Imm Gran Pct Auto 0.3 0. 0-0.4 - % ?Lymphocytes Percent Auto 28.5 20-40 - % ?Monocytes Percent Auto 9.2 2-11 - % ?Eosinophils Percent Auto 2.9 0-4 - % ?Basophils Percent Auto 1.1 0-2 - % ?NRBC Pct Auto 0.0 0.0-0. 2 - /100WBC ?Neutrophils Absolute Auto 3.7 2.0-8.3 - x10*3/uL ?Imm Gran Abs Auto 0.02 0. 00-0.03 - X10*3/uL ?Lymphocytes Absolute Auto 1.8 1.2-4.9 - X10*3/uL ?Monocytes Absolute Auto 0.6 0.1-1.2 - X10*3/uL ?Eosinophils Absolute Auto 0.2 0.0-0.4 - X10*3/uL ?Basophils Absolute Auto 0.1 0.0-0.2 - X10*3/uL ?NRBC Abs Auto 0.000 0.0-0. 012 - X10*3/uL ???Lab:Deric mcneal (Order Date - 12/26/2024) (Collection Date & Time - 12/26/2024 09:36 AM) ? Value Reference Range ?Sodium 141 135-145 - mmo l/L ?Bilirubin Total 0.7 0.0- 1.0 - mg/dL ?Aspartate Amino Transferase 36 5-37 - U/L ?Alanine Aminotransferase 38 0-40 - U/L ?Total Protein 7.1 6.5-8. 0 - g/dL ?Albumin Level 4.4 3.5-5. 0 - g/dL ?Alkaline Phosphatase 88 39-117 - U/L ?Potassium 4.3 3.3-5.1 - mmol/L ?Chloride 107 96-108 - mm ol/L ?Carbon Dioxide 26 22-29 - mmol/L ?Anion Gap 12 12-20 - ?Blood Urea Nitrogen 10 9-16 - mg/dL ?Creatinine 0.83 0.5-1.4 - mg/dL ?Estimated Glomerular Filt Rate > 60 - ?Glucose Random 106 60-11 5 - mg/dL ?Calcium 9.2 8.4-10.2 - m g/dL ???Lab:Lipase (Order Date - 12/26/2024) (Collection Date & Time - 12/26/2024 09:36 AM) ? Value Reference Range ?Lipase 13 8-78 - U/L * Examination: ???General Examination: ?GENERAL APPEARANCE:?well developed, well nourished, in no acute distress.?HEAD:?normocephalic, atraumatic.?EYES:?pupils equal, round, reactive to light and accommodation, sclera non-icteric.?EARS:?normal.?ORAL CAVITY:?mucosa moist.?THROAT:?clear.?NECK/THYROID:?neck supple, full range of motion, no cervical lymphadenopathy, no bruits.?SKIN:?warm and dry, no suspicious lesions.?HEART:?regular rate and rhythm, S1, S2 normal, no murmurs.?LUNGS:?clear to auscultation bilaterally.?ABDOMEN:?soft, nontender, nondistended, bowel sounds present, normal, no organomegaly , no masses palpable.?RECTAL EXAM:?normal tone, no external hemorrhoids, no masses palpable, prostate normal, stool guaiac negative.?MALE GENITOURINARY:?circumcised, no testicular mass, testes descended bilaterally.?EXTREMITIES:?no clubbing, cyanosis, or edema.?NEUROLOGIC:?nonfocal, motor strength normal upper and lower extremities, sensory exam intact.? Assessment: * Assessment: 1.?Annual physical exam - Z0 0.00 (Primary)???2.?Family history of diabetes mellitus - Z83.3???3.?Pure hypercholesterolemia - E78.00???4.?History of hematuria - Z87.448???5.?Hypertension, essential - I10?? 6.?Colon cancer screening - Z12.11???7.?Depression screening - Z13.31??? Plan: * Treatment: 2.?Family history of diabete s mellitus? Notes: good sugar?? 3.?Pure hypercholesterolemia ? Continue Rosuvastatin Calcium Tablet, 40 mg, TAKE 1 TABLET DAILY.?LAB: Liver Panel ?LAB: Lipid Panel with Reflex Notes: well controlled?? 4.?History of hematuria? Notes: has been evaluted?? 5.?Hypertension, essential? Notes: doing well on meds?? 6.?Colon cancer screening?LAB: Occult Blood, Stool, Guaiac (Collection Date & Time - 01/07/2025)?Negative ? Value Reference Range ?Occult Blood, Stool, Guaiac Neg Notes: guaiac negative??7.?Depression screening? Notes: negative screen?? * Procedure Codes:?66774 TEST FOR BLOOD, FECES * Follow Up:?6 Months * * The named appointment provid er may or may not be the originator of this progress note, and it is not deemed complete until electronically signed by the appointment provider. Sign off status: Pending * Provider:?Jayesh Waters MD Date:?0 01/07/2025 Generated for Kishor singh/Frederick/Matildesmitting on:?01/12/2025 08:34 AM EDT History and Physical [...] had two or more falls in the st year?: No Communication Needs Communication Needs Does the patient have a hearing impairment: No Does the patient have a vision impairmen t?: Yes ?If yes, what is the vision impairment?: Glasses Does the patient have a cognition impair ment?: No Examination Category Sub-Category Detail Notes Category Not es General Examination GENERAL APPEARANCE: well dev eloped, well nourished, in no acute distress HEAD: normocephalic, atrau matic EYES: pupils equal, round, reactive to light and accommodation, sclera non- icteric EARS: normal THROAT: clear NECK/THYROID: neck supple, [...]
--- OUTSIDE RECORDS SUMMARY | 2025-01-12 08:35 | XMS_ITS ---
Author Organization Jayesh Waters MD Address [address] [place] [phone] Care Team Providers Care Carpet Cutter Name Role Phone Jayesh Waters Primary Care Provider REASON FOR VISIT 10 DAY SUPPLY OMEPRAZOLE Medications Medication SIG (Take, Route, Fr equency, Duration) Notes Start Date End Date Status Omeprazole 20 mg TAKE 1 CAPSULE DAILY 30 MINUTES BEFORE MORNING MEAL oral daily for 10 days Active Encounters Encounter Location Date Provider Diagnosis Jayesh Waters MD [address] [facility] [address] [place] [phone] 01/01/2025 Jayesh Waters Plan Of Treatment Medication Medication Name Sig Start Date Stop Date Notes Omeprazole 20 mg TAKE 1 CAPSULE DAILY 30 MINUTES BEFORE MORNING MEAL oral daily for 10 days Next Appt Details Provider Name:Jayesh fraire, 07/08/2025 07:15:00 AM, [address] [place] [address], [address], [phone], Provider Name:Jayesh fraire, 07/15/2025 03:30:00 PM, [address] [place] [address], [address], [phone], Provider Name:Jayesh fraire, 01/04/2026 07:15:00 AM, [address] [facility], [address], [place], [place], [phone], Provider Name:Jayesh fraire, 01/11/2026 03:00:00 PM, [address] [facility], [address], [place], [phone], Progress Notes * Navjot TAPIA RDOB:[birth year] (64 yo M)Acc No.[id number]:01/01/2025 Patient:?Navjot TAPIA R :1960???Age:64 Y???Sex:Male Address:[address] [place] [address] * Refills? Continue Omeprazole Capsule Delayed Release, 20 mg, oral, 10, TAKE 1 CAPSULE DAILY 30 MINUTES BEFORE MORNING MEAL, daily, 10 days * true * Date:? Generated for Kishor singh/Frederick/eTransmitting on:?01/12/2025 08:35 AM EDT
--- OUTSIDE RECORDS SUMMARY | 2025-01-12 08:35 | XMS_ITS ---
Author Organization [facility] Address [address] [place] [phone] Care Team Providers Care Business Banking Representative Name Role Phone Jayesh Waters MD Primary Care Provider Gibson Villela [phone] REASON FOR VISIT made pt pre-op clearance appt at PCP Encounters Encounter Location Date Provider Diagnosis [facility] [address] [place] [phone] 08/10/2024 Gibson Reagan Plan Of Treatment No Information Progress Notes * LUKEJOAN LASHELLBELLOB:1960 (64 yo M)Acc No.[id number]:08/10/2024 Patient:?ELIAS HARRIS :1960???Age:64 Y???Sex:Male Address:[address] [place] [address], [address] * true * Date:? Generated for Kishor singh/Frederick/eTransmitting on:?01/12/2025 08:34 AM EDT
[2025-01-12 10:01] LABS: Alanine Aminotransferase 33 U/L (0-40); Albumin Level 4.4 g/dL (3.5-5.0); Alkaline Phosphatase 86 U/L (39-117); Aspartate Amino Transferase 28 U/L (5-37); Bilirubin Direct 0.2 mg/dL (0.0-0.5); Bilirubin Total 0.5 mg/dL (0.0-1.0); Cholesterol 158 mg/dL (<200); HDL Cholesterol 45 mg/dL (>40); LDL Cholesterol Calculated 94 mg/dL (<100); Total Protein 7.2 g/dL (6.5-8.0); Triglycerides 95 mg/dL (<150)
[2025-01-12 11:23] LABS: Reflex LDLD? No
== END 2025-01-12 08:27 | disposition home or self-care (01) ==
LOC: HO.LAB 08:26
PROVIDERS: PCP Internal Medicine; Visit Provider Internal Medicine
DX: Z00.00 Encounter for general adult medical examination without abnormal findings (principal); E78.00 Pure hypercholesterolemia, unspecified
CPT/HCPCS: 36415; 80061; 80076

== ENCOUNTER 2025-03-12 15:11 | Outpatient (REF) | payer BC, SELFPAY ==
--- NOTE | ~2025-03-12 | XR_ITS ---
EXAMINATION: XR SACRUM AND COCCYX CLINICAL INFORMATION: coccyx pain COMPARISON: None available. TECHNIQUE: 2 views of the sacrum and 2 views of the coccyx were obtained. FINDINGS: No acute fracture or cortical destruction is evident. There is sclerosis and osteophytes involving facets in the L4-5 and L5-S1 level. XR/XR sacrum coccyx min 2V IMPRESSION: L4-5 and L5-S1 facet osteoarthritis. Electronically signed by: Víctor Rincon MD 03/12/2025 03:52 PM EDT
--- OUTSIDE RECORDS SUMMARY | 2025-03-12 15:13 | XMS_ITS | Patient Health Record ---
Author Organization Jayesh Waters MD Address [address] [place], [place] [address] Care Team Providers Care Horticulture Superintendent Name Role Phone Jayesh Waters Primary Care Provider [phone] Allergies No Known Allergies Results Component Value Reference Range Notes Blood Urea Nitrogen Reviewed date:04/28/2024 01:55:20 PM Interpretation: Performing Lab:[facility], [address] [place] [phone] Notes/Report: Blood Urea Nitrogen 11 9-16 mg/dL Creatinine Reviewed date:04/28/2024 01:55:27 PM Interpretation: Performing Lab:[facility], [address] [place] [phone] Notes/Report: Creatinine 0.88 0.5-1.4 mg/dL Estimated Glomerular Filt Rate > 60 NOTE: For -Latvian individuals, multiply the result by 1.210. Chronic Kidney Disease: Estimated GFR < 60 mL/min/1.73m2 Severe Kidney Disease: Estimated GFR < 15 mL/min/1.73m2 Occult Blood, Stool, Guaiac Reviewed date:01/07/2025 03:26:26 PM Interpretation:Negative Performing Lab: Notes/Report: Negative Occult Blood, Stool, Guaiac Neg Liver Panel Reviewed date:01/12/2025 12:35:27 PM Interpretation: Performing Lab:[facility], [address] [place] [phone] Notes/Report: Bilirubin Total 0.5 0.0-1.0 mg/dL Bilirubin Direct 0.2 0.0-0.5 mg/dL Aspartate Amino Transferase 28 5-37 U/L Alanine Aminotransferase 33 0-40 U/L Total Protein 7.2 6.5-8.0 g/dL Albumin Level 4.4 3.5-5.0 g/dL Alkaline Phosphatase 86 39-117 U/L Lipid Panel with Reflex Reviewed date:01/12/2025 12:35:16 PM Interpretation: Performing Lab:[facility], [address] [place] [phone] Notes/Report: Triglycerides 95 <150 mg/dL Desirable Triglyceride: [...] low results in patients with liver disease. US venous duplex LE BI Reviewed date:04/28/2024 01:04:53 PM Interpretation: Performing Lab: Notes/Report: [address] [address] Ultrasound Report Signed Patient: Navjot Tapia MR#: [id number] 300 : 1960 Acct:[id number] Age/Sex: 64 / M ADM Date: 04/28/24 Loc: HO.US Attending Dr: Jayesh Waters MD Ordering Physician: Jayesh Waters MD Date of Service: 04/28/24 Procedure(s): US venous duplex LE BI Accession Number(s): [id number] cc: Jayesh Waters MD EXAMINATION: US TRIPLEX [...] 04/28/24 1257 DD/ 1223 TD/TT: 04/28/24 1237 Tool Machine Set Up Operator: [place] [address] Ultrasound Report Signed Patient: Holden Tapia MR#: [id number] 300 : 1960 Acct:[id number] Age/Sex: 64 / M ADM Date: 04/28/24 Loc: . Attending Dr: Jayesh Waters MD Ordering Physician: Jayesh Waters MD Date of Service: 04/28/24 Procedure(s): US nreeida ous duplex LE BI Accession Number(s): [id number] cc: Jayesh Waters MD EXAMINATION: US TRIPLEX [...] thrombosis bilaterally. There is no Castillo's cyst. S/US venous duplex LE BI IMPRESSION: No evidence of deep venous thrombosis involving the bilateral lower extremities. Electronically mat d by: Fabrizio Trent MD 04/28/2024 12:57 PM EDT RP Dictated By: Adonay Trent MD Signed By: <Electronically signed by Adonay Trent MD in OV> 04/28/24 1257 DD/ 1223 TD/TT: 04/28/24 1237 Tool Machine Set Up Operator: LOUIS XR chest 2V Reviewed date:04/28/2024 01:55:13 PM Interpretation: Performing Lab: Notes/Report: [address] [address] XRay Report Signed Patient: Navjot Tapia MR#: [id number] 300 : 1960 Acct:[id number] Age/Sex: 64 / M ADM Date: 04/28/24 Loc: . Attending Dr: Jayesh Waters MD Ordering Physician: Jayesh Waters MD Date of Service: 04/28/24 Procedure(s): XR chest 2V Accession Number(s): [id number] cc: Jayesh Waters MD EXAMINATION: XR CHEST [...] 04/28/24 1336 DD/ 1158 TD/TT: 04/28/24 1208 Tool Machine Set Up Operator: [address] [address] XRay Report Signed Patient: Holden Tapia MR#: [id number] 300 : 1960 Acct:[id number] Age/Sex: 64 / M ADM Date: 04/28/24 Loc: [facility] Attending Dr: Jayesh Waters MD Ordering Physician: Jayesh Waters MD Date of Service: 04/28/24 Procedure(s): XR jorge l st 2V Accession Number(s): [id number] cc: Jayesh Waters MD EXAMINATION: XR CHEST [...] 04/28/24 1336 DD/ 1158 TD/TT: 04/28/24 1208 Tool Machine Set Up Operator: Pathology Reviewed date:10/13/2024 12:48:00 PM Interpretation: Performing Lab:[facility], [address] [place] [phone] Notes/Report: ---- Name: Navjot Tapia Age/Sex: 64/M : 1960 Unit#: [id number] Attend Dr: Gibson Reddy MD Re09/25/24 Status : [facility] Location: [facility] Disch: ---- SPEC : [id number] RECD: 09/25/24-1225 STATUS: KAREEM JOHNSON NUM: [id number] CASEY: 09/25/24-[address] [facility] [address]: Gibson Reddy MD ENTERED: 09/25/24- 32 SP TYPE: Surgical OTHR DR: Jayesh Waters MD ORDERED: HE Stain/6, Gross Micro L4/2, IHC, Special st. 2/2, H. pylori, AB/PAS/2 COMMENTS: 8 unstaine d slides sent to [employer] for [employer] on 09/30/24. Addendum Addendum 1 Entered: 10/13/24 [employer]: Risk c lass Low; risk score 3.2 See report in its entirety in the EMR - Reports/Pathology section as a scanned report (camera icon). If appropriate, a copy has also been sent to the ordering provider's office. Addendum Signed (signature on file) Lauren Tian MD 10/13/24946 ---- Diagnosis A. Gastroesophageal junction, biopsy: Bautista's [...] Navjot Tapia Age/Sex: 64/M : 1960 Unit#: [id number] Attend Dr: Gibson Reddy MD Re09/25/24 Status : [facility] Location: [facility] Disch: ---- SPEC : [id number] RECD: 09/25/24-1225 STATUS: KAREEM JOHNSON NUM: [id number] CASEY: 09/25/24-[address] [facility] [address]: Gibson Reddy MD ENTERED: 09/25/24-12 32 SP TYPE: Surgical OTHR DR: Jayesh Waters MD ORDERED: HE Stain/6, Gross Micro L4/2, IHC, Special st. 2/2, H. pylori, AB/PAS/2 COMMENTS: 8 unstaine d slides sent to [employer] for [employer] on 09/30/24. Gross Description Received [...] MD [facility] [address] [place], [place] [phone] Gibson Reddy MD [facility] [address] [place] [address] ---- Signed (signature on file) Lauren Tian MD 09/28/24 1500 ---- END OF REPORT Complete Blood Count Auto Di ff Reviewed date:12/27/2024 03:42:26 PM Interpretation: Performing Lab:[facility], [address] [place] [phone] Notes/Report: White Blood Count 6.3 4.8-10.8 X10*3/uL [...] 0.0-0.2 /100WBC Neutrophils Absolute Auto 3.7 2.0-8.3 x10*3/uL Imm Gran Abs Auto 0.02 0.00-0.03 X10*3/uL Lymphocytes Absolute Auto 1.8 1.2-4.9 X10*3/uL Monocytes Absolute Auto 0.6 0.1-1.2 X10*3/uL Eosinophils Absolute Auto 0.2 0.0-0.4 X10*3/uL Basophils Absolute Auto 0.1 0.0-0.2 X10*3/uL NRBC Abs Auto 0.000 0.0-0.012 X10*3/uL Comprehensive Met. Panel Reviewed date:12/27/2024 03:39:25 PM Interpretation: Performing Lab:[facility], [address] [place] [phone] Notes/Report: Sodium 141 135-145 mmol/L Potassium 4.3 [...] Lipase Reviewed date:12/27/2024 03:36:13 PM Interpretation: Performing Lab:[address] [address] Notes/Report: Lipase 13 8-78 U/L PSA,Total (Free>4and<10) Reviewed date:12/27/2024 03:36:25 PM Interpretation: Performing Lab:[address] [address] Notes/Report: PSA,Total (Free>4and<10) 0.38 0.00-4.00 ng/mL A [...] between 4.0 and 10.0 ng/mL. PSA methodology: Baires Alinity i Chemiluminescent Microparticle Immunoassay (CMIA) UA ClnCatch+Micro w/rflx Cul t Reviewed date:01/07/2025 02:58:02 PM Interpretation:01-07-25 Performing Lab:[address] [address] Notes/Report: Urine, Clean Catch Color Urine Yellow Appearance Urine Clear PH 8.0 5.0-9.0 Glucose Urine UA Negative Negative mg/dL Urine Blood Trace Negative Specific [place] - Urine <= 1.005 1.005-1.025 Urine Protein [...] pt wa s [facility] [place] [employer]ix Quadrivalent Unknown 07/15/2017 Administered At work Flu[employer]ix Quadrivalent Unknown 06/09/2018 Administered At work [employer] Quadrivalent IM Intramuscular 06/12/2019 Administered pt was given th e vaccine at [facility] in [facility]. 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 Problem 170623939 Family history o f diabetes mellitus (Z83.3) Active confirmed Problem 649728059 History of hemat uria (Z87.448) Active confirmed Problem 723561026 Non-rheumatic mi tral regurgitation (I34.0) Active confirmed Problem 861900045 Pure hypercholesterolemia (E78.00) Active confirmed Problem 885440802 BMI 32.0-32.9,ad ult (Z68.32) Active confirmed Problem 74968609 Hypertension, es sential (I10) Active confirmed Vital Signs Blood pressure diastolic 70 mm Hg 03/12/2025 Height 69 in 03/12/2025 Blood pressure systolic 142 mm Hg 03/12/2025 Weight 232 lbs 03/12/2025 BMI 34.26 kg/m2 03/12/2025 Encounters Encounter Location Date Provider Diagnosis Jayesh Waters MD [address] [place] [id number] 03/12/2025 Jayesh Waters Coccyx pain M53.3 Jayesh Waters MD [address] [place] [address] Drive [address] [place] [id number] 04/28/2024 Jayesh Waters Swelling of lower le g M79.89 ; Rib pain R07.81 ; Cardiac murmur R01.1 ; Hypertension, essential I10 and Bilateral leg edema R60.0 Jayesh Waters MD [address] [place] [address] [id number] 05/21/2024 Jayesh Waters Swelling of lower le g M79.89 and Cardiac murmur R01.1 Jayesh Waters MD [address] [place] [id number] 06/25/2024 Jayesh Waters Swelling of lower le g M79.89 and Cardiac murmur R01.1 Jayesh Waters MD [address] [place] [address] Drive [address] [place] [id number] 09/15/2024 Jayesh Waters Bautista esophagus K2 2.70 and Preoperative clearance Z01.818 Jayesh Waters MD [address] [place] [id number] 01/07/2025 Jayesh Waters Annual physical exam Z00.00 ; Family history of diabetes mellitus Z83.3 ; Pure hypercholesterolemia E78.00 ; History of hematuria Z87.448 ; Hypertension, essential I10 ; Colon cancer screening Z12.11 and Depression screening Z13.31 Jayesh Waters MD [address] [place] [id number] 04/30/2024 Jayesh Waters Swelling of lower le g M79.89 Jayesh Waters MD [address] [place] [id number] 01/01/2025 Jayesh Waters Assessments Encounter Date Diagnosis (ICD Code) Assessment Notes Treatment Notes Treatment Clinical Notes Section Notes 03/12/2025 Coccyx pain (ICD-10 - M53.3) THE XRAY ORDER WAS PRINTED AND GIVEN TO NAVJOT, pending diagnostic testing 04/28/2024 Swelling of lower le g (ICD-10 [...] endoscopy/ echo had no significant cardiac disease 01/07/2025 Annual physical exam (ICD-10 - Z00.00) Order given to the patient to be done at [facility] 01/07/2025 Family history of diabetes mellitus (ICD-10 - Z83.3) good sugar 04/30/2024 Swelling of lower le g (ICD-10 - M79.89) 04/28/2024 Cardiac murmur (ICD- 10 - R01.1) order faxed to [facility] CS dept, pending diagnostic testing 06/25/2024 Cardiac murmur (ICD- 10 - R01.1) echo is normal no valvular pathology 01/07/2025 Pure hypercholesterolemia (ICD-10 - E78.00) well controlled 04/28/2024 Hypertension, essent ial (ICD-10 - I10) given Furosemide for swelling, hopefully this will help lower the BP, will continue to monitor BP 01/07/2025 History of hematuria (ICD-10 - Z87.448) has been evaluted 04/28/2024 Bilateral leg edema (ICD-10 - R60.0) being done 04-28-2024, pending diagnostic testing 01/07/2025 Hypertension, essent ial (ICD-10 - I10) doing well on meds 01/07/2025 Colon cancer screeni ng (ICD-10 - Z12.11) guaiac negative 01/07/2025 Depression screening (ICD-10 - Z13.31) negative screen Plan Of Treatment Pending Test Test Name Order Date Electrocardiogram (EKG) 08/04/2015 Electrocardiogram (EKG) 08/23/2016 XR CHEST 2 VIEW PA & LAT 04/28/2024 US SOFT TISSUE 12/05/2012 US LEG BILATERAL VENOUS DOPPLER 04/28/20 24 ECHO 04/28/2024 ECHO 12/08/2020 XR sacrum coccyx min 2V 03/12/2025 Next Appt Details Provider Name:Jayeshgalileo Mckenna ier, 07/08/2025 07:15:00 AM, [address] [place] [address], [address], [phone], Provider Name:Jayeshgalileo Mckenna ier, 07/15/2025 03:30:00 PM, [address] [place] [address], [address], [phone], Provider Name:Jayesh Channing Clarisa ier, 01/04/2026 07:15:00 AM, [address] [place] [address], [address], [phone], Provider Name:Jayesh Snell Clarisa ier, 01/11/2026 03:00:00 PM, [address] [place] [address], [address], [phone], Insurance Providers Payer Name Payer Address Payer Phone Subscriber Number Group Number Insured Name Patient Relationship to Insured Coverage Start Date Coverage End Date [employer] [address] [place], [place] [phone] [id number] Navjot Tapia Self - patient is the insured Medical (General) History Medical History History ICD Code Refuses flu shot (07-14-12) colonoscopy 08/2009 was normal 2013 - cysto (results l imited - Dr. Diane suggested repeat); not able to do. colonoscopy 03/10/21 awaiting path 5--10y r f/u [facility]alley. had endo 2020. repeat [address] REDDY COLONOSCOPY DUE 02/2031
--- OUTSIDE RECORDS SUMMARY | 2025-03-12 15:13 | XMS_ITS | Patient Health Record ---
Author Organization [facility] Address [address] [place] [address] Care Team Providers Care Resource Economist Name Role Phone Jt CHERY, Jayesh Primary Care Provider Gibson Villela [phone] Allergies No Known Allergies Results Component Value Reference Range Notes Pathology (Not yet reviewed by provider) Interpretation: Performing Lab:[facility], [address] [place] [phone] Notes/Report: Reason For Referral No Information Medications Medication [...] W/U Status Risk Notes Problem Esophageal reflux (756485944) Esophageal reflux (K21.9) Active confirmed Problem 667824181 Encounter for screening for malignant neoplasm of colon (Z12.11) Active confirmed Problem 50543508 Abdominal pain, epigastric (R10.13) Active confirmed Problem Gastroesophageal reflux disease without esophagitis (K21.9) Active confirmed Problem Benign neoplasm of stomach (75738609) Gastric polyps (K31.7) Active confirmed Problem Diverticular disease of colon (342878345) Diverticular disease of colon (K57.30) Active confirmed Problem 321805124 Family history o f esophageal cancer (Z80.0) Active confirmed Problem Bautista's esophagus (567526321) 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) Active confirmed Problem 394956421 Gastroesophageal reflux disease, unspecified whether esophagitis present (K21.9) Active confirmed Vital Signs Temperature 97.5 degrees Fahrenheit 05/20/2024 Blood pressure diastolic 00 mm Hg 05/20/2024 Height 69 in 05/20/2024 Blood pressure systolic 000 mm Hg 05/20/2024 Weight 234 lb 4 oz lbs 05/20/2024 BMI 34.59 kg/m2 05/20/2024 Encounters Encounter Location Date Provider Diagnosis [facility] [address] [place] [id number] 09/25/2024 Gibson Reagan Bautista''s esophagus without dysplasia K22.70 ; Gastroesophageal reflux disease without esophagitis K21.9 and Gastric polyps K31.7 [facility] [address] [place] [phone] 05/20/2024 Gibson Reagan Bautista''s esophagus without dysplasia K22.70 and Gastroesophageal reflux disease, unspecified whether esophagitis present K21.9 [facility] [address] [place] [phone] 08/10/2024 Gibson Reagan Assessments Encounter Date Diagnosis [...] did advise him to continue his omeprazole group home for acid suppression and relief of heartburn. [...] did advise him to continue his omeprazole group home for acid suppression and relief of heartburn. [...] Insured Coverage Start Date Coverage End Date [facility] [address] [place], [place] [phone] [id number] NAVJOT HARRIS Self - patient is the insured Medical (General) History Medical History History ICD Code Hyperlipidemia GERD Denies CT,DM,CVA,Lung disease,renal dise ase EGD reportedly negative over [...]
--- OUTSIDE RECORDS SUMMARY | 2025-03-12 15:13 | XMS_ITS | Patient Health Record ---
Author Organization [facility] Address [address] [facility] [place] [address] Care Team Providers Care Concrete Float Maker Name Role Phone Jayesh Waters MD Primary Care Provider Marlo Castro Unavailable [phone] Allergies No Known Allergies Reason For Referral No Information Medications Medication SIG (Take, Route, Frequency, Duration) Notes Start Date End Date Status Omeprazole 20 MG (Prior Auth#:[id number]) Oral; Duration: 90 Active Atorvastatin Calcium 40 MG (Prior Auth#:[id number]) Oral; Duration: 90 Active methylPREDNISolone 4 MG (Prior Auth#:[id number]) Oral; Duration: 6 Not-Taking Social History Alcohol Screen Question Answer Notes Did you have a drink containing alcohol in the p ast year? No Points 0 Interpretation Negative Plan Of Treatment No Information Insurance Providers Payer Name Payer Address Payer Phone Subscriber Number Group Number Insured Name Patient Relationship to Insured Coverage Start Date Coverage End Date [employer] [address] [place] [phone] [id number] Navjot Tapia Self - patient is the insured Medical (General) History Medical History History ICD Code CAD (Cholesterol) Reflux Surgical History Surgery Date(Month/Year)
== END 2025-03-12 15:12 | disposition home or self-care (01) ==
LOC: HO.XRAY 15:11
PROVIDERS: PCP Internal Medicine; Visit Provider Internal Medicine
DX: M53.3 Sacrococcygeal disorders, not elsewhere classified (principal)
CPT/HCPCS: 72220

== ENCOUNTER → 2025-03-12 15:28 | Outpatient (BNV) | payer BC, SELFPAY | PROVIDERS: PCP Internal Medicine; Visit Provider Radiology Diagnostic Radiology | DX: M47.817 Spondylosis without myelopathy or radiculopathy, lumbosacral region (principal) | CPT/HCPCS: 72220 ==

== ENCOUNTER 2025-07-24 08:42 | Outpatient (REF) | payer BC, SELFPAY ==
--- OUTSIDE RECORDS SUMMARY | 2024-04-30 03:57 | XMS_ITS ---
Author Organization Jayesh Waters MD Address [address] [place] [phone] Care Team Providers Care Site Specialist Name Role Phone Jayesh Waters Primary Care Provider REASON FOR VISIT ? water pill Medications Medication SIG (Take, Route, Fr equency, Duration) Notes Start Date End Date Status Furosemide 20 MG 1 tablet Orally Once a day for 30 days 04/28/2024 Active Encounters Encounter Location Date Provider Diagnosis Jayesh Waters MD [address] [facility] [address] [place] [phone] 04/30/2024 Jayesh Waters Swelling of lower leg M79.89 Assessments Encounter Date Diagnosis (ICD Code) Assessment Notes Treatment Notes Treatment Clinical Notes Section Notes 04/30/2024 Swelling of lower leg (ICD-10 - M79.89) Plan Of Treatment Medication Medication Name Sig Start Date Stop Date Notes Furosemide 20 MG 1 tablet Orally Once a day for 30 days Next Appt Details Provider Name:Jayesh fraire, 08/05/2025 03:00:00 PM, [address] [place] [address], [address], [phone], Provider Name:Jayesh farire, 01/04/2026 07:15:00 AM, [address] [place] [address], [address], [place], [phone], Provider Name:Jayesh Channing Clarisa fraire, 01/11/2026 03:00:00 PM, [address] [facility], [address], [place], [phone], Progress Notes * Navjot TAPIA RDOB:[birth year] (64 yo M)Acc No.[id number]:04/30/2024 Patient: Lee Navjot lozoya :1960 A ge:64 Y S ex:Male Address:[address] [place] [id number] * Refills Refill Furosemide Tablet, 20 MG, Orally, 30, 1 tablet, Once a day, 30 days, Refills=0 * true * Date: Generated for Kishor singh/Frederick/Joanneitting on: 09/23/2024 08:43 AM EST
--- OUTSIDE RECORDS SUMMARY | 2024-05-21 10:30 | XMS_ITS ---
Author Organization Jayesh Waters MD Address [address] [place] [phone] Care Team Providers Care Medical Information Specialist Name Role Phone Jayesh Waters Primary Care Provider Allergies No Known Allergies REASON FOR VISIT must see 3 week, stopped Furosemide after 2 weeks GI Upset Medications Medication SIG (Take, Route, Frequency, Duration) Notes Start Date End Date Status Furosemide 20 MG 1 tablet Orally Once a day for 30 days 04/28/2024 Not-Taking Rosuvastatin Calcium 40 mg TAKE 1 TABLET DAILY Active Omeprazole 20 mg TAKE 1 CAPSULE DAILY 30 MINUTES BEFORE MORNING MEAL Active Vital Signs Blood pressure systolic 156 mm Hg 05/21/20 24 Blood pressure diastolic 70 mm Hg 024 Height 69 in 05/21/2024 Weight 238 lbs 05/21/2024 BMI 35.14 kg/m2 05/21/2024 weight is up 5 pounds since 04-28-24 Encounters Encounter Location Date Provider Diagnosis Jayesh Waters MD [address] [place] [phone] 05/21/2024 Jayesh Waters Swelling of lower leg M79.89 and Cardiac murmur R01.1 Assessments Encounter Date Diagnosis (ICD Code) Assessment Notes Treatment Notes Treatment Clinical Notes Section Notes 05/21/2024 Swelling of lower leg (ICD-10 - M79.89) is doing much better 05/21/2024 Cardiac murmur (ICD-10 - R01.1) awaiting echo. Plan Of Treatment Treatment Notes Assessment Notes Swelling of lower leg is doing much bett er Cardiac murmur awaiting echo. Next Appt Details Follow Up: 3 Weeks, Reason: Provider Name:Jayesh Mckenna ier, 08/05/2025 03:00:00 PM, [address] [place] [address], Suite [facility], [place], [place], [phone], Provider Name:Jayesh Mckenna ier, 01/04/2026 07:15:00 AM, [address] [place] [address], Suite [facility], [place], [place], [phone], Provider Name:Jayesh Mckenna ier, 01/11/2026 03:00:00 PM, [address] [place] [address], Suite [facility], [place], [place], [phone], Progress Notes * Navjot TAPIA RDOB:[birth year] (64 yo M)Acc No.[id number]:05/21/2024 Patient: Holden Baconne R Provider: Jesse Waters MD :1960 A ge:64 Y S ex:Male Date:05/21/2024 Address:[address] [place], [place] [phone] Subjective: * Chief Complaints: * M ust see 3 weekstopped Furosemide after 2 weeks GI Upset * HPI: S ymptom(s): patient is a 64 yo male here for 3 week follow up visit, has improved leg swelling. stopped furosemide one week ago and no change in swelling. * ROS: G eneral/Constitutional: Denies C hills. D enies F atigue. D enies F ever. D enies H eadache. E NT: Patient denies d ecreased sense of smell , any loss of taste , sore throat. D enies S ore throat. R espiratory: Denies C ough. D enies S hortness of breath at rest. D enies S hortness of breath with exertion. C ardiovascular: Patient complaining of d enies shortness of breath or pnd.? G astrointestinal: Denies D iarrhea. D enies N ausea. M usculoskeletal: Patient denies m uscle aches. P eripheral Vascular: Patient denies r ed and blue toes. * Medical History: * Surgical History: * Hospitalization/Major Diagno stic Procedure: * Medications: T akingOmeprazole 20 mg Capsule Delayed Release TAKE 1 CAPSULE DAILY 30 MINUTES BEFORE MORNING MEAL Rosuvastatin Calcium 40 mg Tablet TAKE 1 TABLET DAILY Taking Omeprazole 20 mg Capsule Delayed Release TAKE 1 CAPSULE DAILY 30 MINUTES BEFORE MORNING MEAL Taking Rosuvastatin Calcium 40 mg Tablet TAKE 1 TABLET DAILY Not- Taking/PRNFurosemide 20 MG Tablet 1 tablet Orally Once a dayMedication List reviewed and reconciled with the patientNot-Taking/PRN Furosemide 20 MG Tablet 1 tablet Orally Once a dayMedication List reviewed and reconciled with the patient * Allergies: N .K.D.A.yes[Allergies Verified] Objective: * Vitals: H t: 69, Wt:238, BMI:35.14, BP:156/70, Repeat BP:142/70 weight is up 5 pounds since 04-28-24. * Examination: G eneral Examination: GENERAL APPEARANCE: alert, well hydrated, in no distress . HEAD: normocephalic. SKIN: good turgor. HEART: , grade 3/6 systolic murmur at left sternal border. LUNGS: no wheezes, rales, rhonchi, good air movement, clear to auscultation bilaterally. EXTREMITIES: 1+ pitting edema lower extremities. ? Assessment: * Assessment: 1. S welling of lower leg - M79.89 (Primary) 2 . C ardiac murmur - R01.1 Plan: * Treatment: 2. C ardiac murmur Notes: awaiting echo. * Procedure Codes: * Follow Up: 3 Weeks * * Sign off status: Completed true * Provider: Jesse Waters MD Date: 0 05/21/2024 Generated for Kishor singh/Frederick/eTparkersmitting on: 09/23/2024 08:43 AM EST History and Physical Notes * HPI (History of Present Illness) Category Sub-Category Detail Notes Category Not es Symptom(s) patient is a 64 yo male here for 3 week follow up visit, has improved leg swelling. stopped furosemide one week ago and no change in swelling Examination Category Sub-Category Detail Notes Category Not es General Examination GENERAL APPEARANCE: alert, w ell hydrated, in no distress HEAD: normocephalic HEART: , grade 3/6 sy stolic murmur at left sternal border LUNGS: no wheezes, rales, r honchi, good air movement, clear to auscultation bilaterally SKIN: good turgor EXTREMITIES: 1+ pitting edema low er extremities
--- OUTSIDE RECORDS SUMMARY | 2024-06-25 10:00 | XMS_ITS ---
Author Organization Jayesh Waters MD Address [address] [place] [phone] Care Team Providers Care Senior Dentist Name Role Phone Jayesh Waters Primary Care Provider [phone] Allergies No Known Allergies REASON FOR VISIT 3 WEEK F/U Medications Medication SIG (Take, Route, Frequency, Duration) Notes Start Date End Date Status Rosuvastatin Calcium 40 mg TAKE 1 TABLET DAILY Active Furosemide 20 MG 1 tablet Orally Once a day for 30 days 04/28/2024 Not-Taking Omeprazole 20 mg TAKE 1 CAPSULE DAILY 30 MINUTES BEFORE MORNING MEAL Active Vital Signs Blood pressure systolic 124 mm Hg 06/25/20 24 Blood pressure diastolic 62 mm Hg 024 Height 69 in 06/25/2024 Weight 233 lbs 06/25/2024 BMI 34.40 kg/m2 06/25/2024 weight is down 5 pounds [facility] e 05-21-24 Encounters Encounter Location Date Provider Diagnosis Jayesh Waters MD [address] [place] [phone] 06/25/2024 Jayesh Waters Swelling of lower leg M79.89 and Cardiac murmur R01.1 Assessments Encounter Date Diagnosis (ICD Code) Assessment Notes Treatment Notes Treatment Clinical Notes Section Notes 06/25/2024 Swelling of lower leg (ICD-10 - M79.89) has resolved and is off the furosemeide 06/25/2024 Cardiac murmur (ICD-10 - R01.1) echo is normal no valvular pathology Plan Of Treatment Treatment Notes Assessment Notes Swelling of lower leg has resolved and i s off the furosemeide Cardiac murmur echo is normal no va lvular pathology Next Appt Details Follow Up: cancel nov appt, Reason: Provider Name:Jayesh Mckenna ier, 08/05/2025 03:00:00 PM, [address] [place] [address], [address], [place], [place], [phone], Provider Name:Jayesh Mckenna ier, 01/04/2026 07:15:00 AM, [address] [place] [address], [address], [place], [place], [phone], Provider Name:Jayesh Mckenna ier, 01/11/2026 03:00:00 PM, [address] [place] [address], Suite [facility], [place], [place], [phone], Progress Notes * Holden TAPIAne RDOB:[birth year] (64 yo M)Acc No.[id number]:06/25/2024 Progress Notes Patient: Navjot Bacon R Provider: Jesse Waters MD :1960 A ge:64 Y S ex:Male Date:06/25/2024 Address:[address] [place] [address] Subjective: * Chief Complaints: * 3 WEEK F/U * HPI: S ymptom(s): patient is a 64 yo male here for 3 week follow up visit, took furosemide for 10 days and felt sick to stomach. has not taken furosemide in couple weeks and the fluid didn't return. * ROS: G eneral/Constitutional: Denies C hills. [...] hortness of breath with exertion. C ardiovascular: Denies C hest pain at rest. D enies C hest pain with exertion. D enies D izziness. D enies F luid accumulation in the legs. D enies?Palpitations. D enies S hortness of breath. G astrointestinal: Denies D iarrhea. D enies [...] Verified] Objective: * Vitals: H t: 69, Wt:233, BMI:34.40, BP:124/62 weight is down 5 pounds since 05-21-24. * Examination: G eneral Examination: GENERAL APPEARANCE: m aadrsh , alert, well hydrated, in no distress. HEAD: n ormocephalic. SKIN: g ood turgor. HEART: n o murmurs, rubs, gallops , regular rate and rhythm. LUNGS: n o wheezes, rales, rhonchi , good air movement , clear to auscultation bilaterally. EXTREMITIES: n o edema. Assessment: * Assessment: 1. S welling of lower leg - M79.89 (Primary) 2 . C ardiac murmur - R01.1 Plan: * Treatment: 2. C ardiac murmur Notes: echo is normal no valvular pathology * Procedure Codes: * Follow Up: yue segundo appt * * Sign off status: Completed true * Provider: Jesse Waters MD Date: Generated for Kishor singh/Frederick/Joanneitting on: 09/23/2024 08:44 AM EST History and Physical Notes * HPI (History of Present Illness) Category Sub-Category Detail Notes Category Not es Symptom(s) patient is a 64 yo male here for 3 week follow up visit, took furosemide for 10 days and felt sick to stomach. has not taken furosemide in couple weeks and the fluid didn't return Examination Category Sub-Category Detail Notes Category Not es General Examination GENERAL APPEARANCE: male , a lert, well hydrated, in no distress HEAD: normocephalic HEART: no murmurs, rubs, ga llops , regular rate and rhythm LUNGS: no wheezes, rales, r honchi , good air movement , clear to auscultation bilaterally SKIN: good turgor EXTREMITIES: no edema
--- OUTSIDE RECORDS SUMMARY | 2024-07-03 11:45 | XMS_ITS ---
Author Organization Jayesh Waters MD Address [address] [facility] [address] [place] [phone] Care Team Providers Care Electrical Drafter Name Role Phone Jayesh Waters Primary Care Provider Allergies No Known Allergies REASON FOR VISIT 6 MO F/U Encounters Encounter Location Date Provider Diagnosis Jayesh Waters MD [address] [facility] [address] [place] [phone] 07/03/2024 Jayesh Waters Plan Of Treatment Next Appt Details Provider Name:Jayesh Mckenna ier, 08/05/2025 03:00:00 PM, [address] [place] [address], [address], [phone], Provider Name:Jayesh Mckenna ier, 01/04/2026 07:15:00 AM, [address] [place] [address], [address], [phone], Provider Name:Jayesh fraire, 01/11/2026 03:00:00 PM, [address] [place] [address], [address], [phone], Progress Notes * Navjot TAPIA RDOB:[birth year] (65 yo M)Acc No.[id number]:07/03/2024 Progress Notes Patient: Navjot SNYDER Provider: Jesse Waters MD :1960 A ge:64 Y S ex:Male Date:07/03/2024 Address:[address] [place], [place] [phone] Subjective: * Chief Complaints: * 1 . 6 MO F/U. * ROS: G eneral/Constitutional: Denies C hills. D enies F atigue. D enies F ever. D enies H eadache. E NT: Denies S ore throat. R espiratory: Denies C ough. D enies S hortness of breath at rest. D enies S hortness of breath with exertion. G astrointestinal: Denies D iarrhea. D enies N ausea. * Medical History: R efuses flu shot (07-14-12), Colonoscopy 08/2009 was normal, 2013 - cysto (results limited - Dr. Diane suggested repeat); not able to do. , Colonoscopy 03/10/21 awaiting path 5--10yr f/u, Oliverio omalley. had endo 2020. repeat 2023, PER DR REDDY COLONOSCOPY DUE 02/2031. * Allergies: N .K.D.A. Objective: * Vitals: Assessment: Plan: * Treatment: * * The named appointment provid er may or may not be the originator of this progress note, and it is not deemed complete until electronically signed by the appointment provider. Sign off status: Pending * Provider: Jesse Waters MD Date: 09/02/2023 Generated for Kishor singh/Frederick/Matildesmitting on: 09/23/2024 08:44 AM EST
--- OUTSIDE RECORDS SUMMARY | 2024-09-15 10:00 | XMS_ITS ---
Author Organization Jayesh Waters MD Address [address] [place] [phone] Care Team Providers Care Tribal Judge Name Role Phone Jt Jayesh Primary Care Provider Allergies No Known Allergies REASON FOR VISIT pre-op clearence for upper endo 09-25-23 tin Pearl because he had an echo done . Medications Medication SIG (Take, Route, Frequency, Duration) Notes Start Date End Date Status Omeprazole 20 mg TAKE 1 CAPSULE DAILY 30 MINUTES BEFORE MORNING MEAL Active Furosemide 20 MG 1 tablet Orally Once a day for 30 days 04/28/2024 Not-Taking Rosuvastatin Calcium 40 mg TAKE 1 TABLET DAILY Active Vital Signs Height 69 in 09/15/2024 Weight 230 lbs 09/15/2024 BMI 33.96 kg/m2 09/15/2024 weight is down 3 pounds [facility] e 06-25-24 Encounters Encounter Location Date Provider Diagnosis Jayesh Waters MD [address] [place] [phone] 09/15/2024 Jayesh Waters 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 cleared for endoscopy/ echo had no significant cardiac disease Plan Of Treatment Treatment Notes Assessment Notes Bautista esophagus awaiting diagnostic testing Preoperative clearance patient healthy. cleared for endoscopy/ echo had no significant cardiac disease Next Appt Details Provider Name:Jayesh Mckenna ier, 08/05/2025 03:00:00 PM, [address], [address], [place], [place], [phone], Provider Name:Jayesh Mckenna ier, 01/04/2026 07:15:00 AM, [address], [place], [place], [phone], Provider Name:Jayesh Mckenna ier, 01/11/2026 03:00:00 PM, [address] [place] [address], Suite [facility], [place], [place], [phone], Progress Notes * LUKEHolden FRANCOne RDOB:[birth year] (64 yo M)Acc No.[id number]:09/15/2024 Patient: Holden SNYDERne R Provider: Jesse Waters MD :1960 A ge:64 Y S ex:Male Date:09/15/2024 Address:[address] [place], [place] [phone] Subjective: * Chief Complaints: * p re-op clearence for upper endo 09-25-23 Dr. Reagan Neded because he had an echo done . * HPI: S ymptom(s): patientis a 64 yo male here fore pre op cearance for upcoming upper endoscopy scheduld with Dr Reagan 09/25/24. * ROS: G eneral/Constitutional: Denies C hills. D enies F atigue. D enies F ever. D enies H eadache. E NT: Patient denies d ecreased sense of smell , any loss of taste , sore throat. D enies S ore throat. R espiratory: Patient denies s hortness of breath with exertion. D enies C ough. D enies S hortness of breath at rest. D enies S hortness of breath with exertion. C ardiovascular: Patient denies c hest pain with exertion , chest pain at rest. G astrointestinal: Denies D iarrhea. D enies [...] MG Tablet 1 tablet Orally Once a day Medication List reviewed and reconciled with the patientNot-Taking/PRN Furosemide 20 MG Tablet 1 tablet Orally Once a day Medication List reviewed and reconciled with the patient * Allergies: N .K.D.A.yes[Allergies Verified] Objective: * Vitals: H t: 69, Wt:230, BMI:33.96, Repeat BP:132/70. weight is down 3 pounds since 06-25-24. * Examination: G eneral Examination: GENERAL APPEARANCE: w ell developed, well nourished. HEAD: n ormocephalic. EARS: n ormal. ORAL CAVITY: m ucosa moist. THROAT: n o erythema , no exudate , pharynx normal. NECK/THYROID: n o cervical lymphadenopathy. SKIN: g ood turgor. HEART: g rade 2/6 systolic murmur at left sternal border.? LUNGS: n o wheezes, rales, rhonchi , good air movement , clear to auscultation bilaterally. ABDOMEN: s oft, nontender, nondistended , no rebound tenderness , no organomegaly. Assessment: * Assessment: 1. B arrett esophagus - K22.70 (Primary) 2 . P reoperative clearance - Z01.818 Plan: * Treatment: 2. P reoperative clearance Notes: patient healthy. cleared for endoscopy/ echo had no significant cardiac disease * Procedure Codes: * * Sign off status: Completed true * Provider: Jesse Waters MD Date: 0 09/15/2024 Generated for Kishor singh/Frederick/Joanneitting on: 1 09/23/2024 08:44 AM EST History and Physical Notes * HPI (History of Present Illness) Category Sub-Category Detail Notes Category Not es Symptom(s) patientis a 64 yo male here fore pre op cearance for upcoming upper endoscopy scheduld with Dr Reagan 09/25/24 Examination Category Sub-Category Detail Notes Category Not es General Examination GENERAL APPEARANCE: well developed , well nourished HEAD: normocephalic EARS: normal THROAT: no erythema , no exu date , pharynx normal NECK/THYROID: no cervical lymphade nopathy HEART: grade 2/6 systolic m urmur at left sternal border LUNGS: no wheezes, rales, r honchi , good air movement , clear to auscultation bilaterally ABDOMEN: soft, nontender, non distended , no rebound tenderness , no organomegaly SKIN: good turgor ORAL CAVITY: mucosa moist
--- OUTSIDE RECORDS SUMMARY | 2024-09-25 05:30 | XMS_ITS ---
Author Organization [facility] Address [address] [place] [phone] Care Team Providers Care Medical Practice Assistant Name Role Phone Jt CHERY, Jayesh Primary Care Provider Gibson Villela Unavailable [phone] REASON FOR VISIT Bautista's esophagus without dysplasia, esophageal reflux Problems Problem Type SNOMED Code ICD Code Onset Dates Problem Status W/U Status Risk Notes Problem Information temporarily unavailable Gastroesophageal reflux disease without esophagitis (K21.9) Active confirmed Encounters Encounter Location Date Provider Diagnosis [facility] Outpatient [address] [place] [phone] 09/25/2024 Gibson Reagan Bautista''s esophagus without dysplasia K22.70 ; Gastroesophageal reflux disease without esophagitis K21.9 and Gastric polyps K31.7 Assessments Encounter Date Diagnosis (ICD Code) Assessment Notes Treatment Notes Treatment Clinical Notes Section Notes 09/25/2024 Bautista''s esophagus without dysplasia (ICD-10 - K22.70) 09/25/2024 Gastroesophageal reflux disease without esophagitis (ICD-10 - K21.9) 09/25/2024 Gastric polyps (ICD-10 - K31.7) Plan Of Treatment No Information Progress Notes * LASHELL HARRISNEDOB:1960 (65 yo M)Acc No.[id number]:09/25/2024 EGD/MAC Patient: Lee VALADEZ ELIAS Provider: Marci Reagan MD :1960 A ge:64 Y S ex:Male Date:09/25/2024 Address:[address] [place], [place] [phone] Pcp:Jayesh Waters MD Subjective: * Chief Complaints: * B arrett's esophagus without dysplasia, esophageal reflux Assessment: * Assessment: 1. B arrett''s esophagus without dysplasia - K22.70 (Primary) 2 . G astroesophageal reflux disease without esophagitis - K21.9 3 . G astric polyps - K31.7? Plan: * Procedure Codes: 4 3239 UPPER GI ENDOSCOPY, BIOPSY Billing Information: * Procedure Codes: 28202 UPPER GI ENDOSCOPY, BIOPSY. * The named appointment provid er may or may not be the originator of this progress note, and it is not deemed complete until electronically signed by the appointment provider. Sign off status: Pending * Provider: Marci Reagan MD Date: 0 09/25/2024 Generated for Kishor singh/Frederick/Joanneitting on: 09/23/2024 08:43 AM EST
--- OUTSIDE RECORDS SUMMARY | 2024-12-31 03:00 | XMS_ITS ---
Author Organization Jayesh Waters MD Address [address] [place], [place] [phone] Care Team Providers Care Fabric Awning Repairer Name Role Phone Jayesh Waters Primary Care Provider REASON FOR VISIT FASTING LABS Encounters Encounter Location Date Provider Diagnosis Jayesh Waters MD [address] [place] [phone] 12/31/2024 Jayesh Waters Blood tests for rout ine general physical examination Z00.00 ; Pure hypercholesterolemia E78.00 and Hypertension, essential I10 Assessments Encounter Date Diagnosis (ICD Code) Assessment Notes Treatment Notes Treatment Clinical Notes Section Notes 12/31/2024 [address] tests for rout ine general physical examination (ICD-10 - Z00.00) 12/31/2024 Pure hypercholesterolemia (ICD-10 - E78.00) 12/31/2024 Hypertension, essent ial (ICD-10 - I10) Plan Of Treatment Pending Test Test Name Order Date Complete Blood Count Auto Diff 5 Comprehensive [place]. Panel Fast 5 Lipid Panel 12/31/2024 PSA,Total (Free>4and<10) 12/31/2024 UA ClnCatch+Micro w/rflx Cult 12/31/2024 Next Appt Details Provider Name:Jayesh Mckenna ier, 08/05/2025 03:00:00 PM, [address], [address], [place], [place], [phone], Provider Name:Jayesh Mckenna ier, 01/04/2026 07:15:00 AM, [address], [address], [place], [place], [phone], Provider Name:Jayesh Mckenna ier, 01/11/2026 03:00:00 PM, [address], [address], [place], [place], [phone], Progress Notes * Navjot TAPIA RDOB:[birth year] (65 yo M)Acc No.[id number]:12/31/2024 Progress Note Patient: Navjot SNYDER Provider: Jesse Waters MD :1960 A ge:64 Y S ex:Male Date:12/31/2024 Address:[address] [place], [place] [phone] Subjective: * Chief Complaints: * 1 . FASTING LABS. * Medical History: Objective: * Vitals: Assessment: * Assessment: 1. B lood tests for routine general physical examination - Z00.00 (Primary) 2 .?Pure hypercholesterolemia - E78.00 3 . H ypertension, essential - I10 Plan: * Treatment: 2. P ure hypercholesterolemia L AB: Complete Blood Count Auto Diff L AB: Comprehensive [place]. Panel Fast L AB: Lipid Panel L AB: PSA,Total (Free>4and<10) L AB: UA ClnCatch+Micro w/rflx Cult 3. H ypertension, essential L AB: Complete Blood Count Auto Diff L AB: Comprehensive [place]. Panel Fast L AB: Lipid Panel L AB: PSA,Total (Free>4and<10) L AB: UA ClnCatch+Micro w/rflx Cult * * The named appointment provid er may or may not be the originator of this progress note, and it is not deemed complete until electronically signed by the appointment provider. Sign off status: Pending * Provider: Jesse Waters MD Date: 0 12/31/2024 Generated for Kishor singh/Frederick/eTransmitting on: 09/23/2024 08:44 AM EST
--- OUTSIDE RECORDS SUMMARY | 2025-01-01 09:55 | XMS_ITS ---
Author Organization Jayesh Waters MD Address [address] [place] [phone] Care Team Providers Care Mud Mill Tender Name Role Phone Jayesh Waters Primary Care Provider [phone] REASON FOR VISIT 10 DAY SUPPLY OMEPRAZOLE Medications Medication SIG (Take, Route, Fr equency, Duration) Notes Start Date End Date Status Omeprazole 20 mg TAKE 1 CAPSULE DAILY 30 MINUTES BEFORE MORNING MEAL oral daily for 10 days Active Encounters Encounter Location Date Provider Diagnosis Jayesh Waters MD [address] [facility] [address] [place] [phone] 01/01/2025 Jayesh Waters Plan Of Treatment Medication Medication Name Sig Start Date Stop Date Notes Omeprazole 20 mg TAKE 1 CAPSULE DAILY 30 MINUTES BEFORE MORNING MEAL oral daily for 10 days Next Appt Details Provider Name:Jayesh fraire, 08/05/2025 03:00:00 PM, [address] [place] [address], [address], [phone], Provider Name:Jayesh fraire, 01/04/2026 07:15:00 AM, [address] [place] [address], [address], [phone], Provider Name:Jayesh fraire, 01/11/2026 03:00:00 PM, [address] [place] [address], [address], [place], [place], [phone], Progress Notes * Navjot TAPIA RDOB:[birth year] (64 yo M)Acc No.[id number]:01/01/2025 Patient: Navjot SNYDER :1960 A ge:64 Y S ex:Male Address:[address] [place] [id number] * Refills Continue Omeprazole Capsule Delayed Release, 20 mg, oral, 10, TAKE 1 CAPSULE DAILY 30 MINUTES BEFORE MORNING MEAL, daily, 10 days * true * Date: Generated for Kishor singh/Frederick/Joanneitting on: 09/23/2024 08:45 AM EST
--- OUTSIDE RECORDS SUMMARY | 2025-01-07 10:00 | XMS_ITS ---
Author Organization Jayesh Waters MD Address [address] [place], [place] [id number] Care Team Providers Care Technical Services Librarian Name Role Phone Jayesh Waters Primary Care Provider [phone] Allergies No Known Allergies Results Component Value Reference Range Notes Occult Blood, Stool, Guaiac Reviewed date:01/07/2025 03:26:26 PM Interpretation:Negative Performing Lab: Notes/Report: Negative Occult Blood, Stool, Guaiac Neg Liver Panel Reviewed date:01/12/2025 12:35:27 PM Interpretation: Performing Lab:[facility], [address] [place] [phone] Notes/Report: Bilirubin Total 0.5 0.0-1.0 mg/dL Bilirubin Direct 0.2 0.0-0.5 mg/dL Aspartate Amino Transferase 28 5-37 U/L Alanine Aminotransferase 33 0-40 U/L Total Protein 7.2 6.5-8.0 g/dL Albumin Level 4.4 3.5-5.0 g/dL Alkaline Phosphatase 86 39-117 U/L Lipid Panel with Reflex Reviewed date:01/12/2025 12:35:16 PM Interpretation: Performing Lab:[facility], [address] [place] [phone] Notes/Report: Triglycerides 95 <150 mg/dL Desirable Triglyceride: less than 150 mg/dL Borderline High Triglyceride 150-199 mg/dL High Triglyceride: 200-499 mg/dL Very High Triglyceride: greater than or equal to 5OO mg/dL Cholesterol 158 <200 mg/dL Desirable Cholesterol: less than 200 mg/dL Borderline High Cholesterol: 200-239 mg/dL High Cholesterol: greater than 239 mg/dL LDL Cholesterol Calculated 94 <100 mg/dL Desirable LDL: less than 100 mg/dL Near Optimal/Above Optimal LDL: 110-129 mg/dL Borderline High LDL: 130-159 mg/dL High LDL: 160-189 mg/dL Very High LDL: greater than or equal to 190 mg/dL HDL Cholesterol 45 >40 mg/dL Desirable HDL: greater than 40 mg/dL Note: This HDL assay may give artificially low results in patients with liver disease. REASON FOR VISIT ANNUAL EXAM/ must see urine Medications Medication SIG (Take, Route, Frequency, Duration) Notes Start Date End Date Status Furosemide 20 MG 1 tablet Orally Once a day for 30 days 04/28/2024 Not-Taking Rosuvastatin Calcium 40 mg TAKE 1 TABLET DAILY Active Omeprazole 20 mg TAKE 1 CAPSULE DAILY 30 MINUTES BEFORE MORNING MEAL oral daily for 10 days Active Social History Tobacco Use: Social History Observation Description Date Details (start date - stop date) Never Smoker NA - NA Tobacco Use/Smoking Question Answer Notes Patient is a nonsmoker Additional Findings: Tobacco Non-User Cu rrent non-smoker, currently using no form of tobacco Alcohol Screen Question Answer Notes Did you have a drink containing alcohol in the p ast year? No Points 0 Interpretation Negative Vital Signs Blood pressure systolic 132 mm Hg 01/08/20 25 Blood pressure diastolic 60 mm Hg 025 Height 69 in 01/07/2025 Weight 230 lbs 01/07/2025 BMI 33.96 kg/m2 01/07/2025 Encounters Encounter Location Date Provider Diagnosis Jayesh Waters MD [address] [place], [place] [id number] 01/07/2025 Jayesh Waters Annual physical exam Z00.00 ; Family history of diabetes mellitus Z83.3 ; Pure hypercholesterolemia E78.00 ; History of hematuria Z87.448 ; Hypertension, essential I10 ; Colon cancer screening Z12.11 and Depression screening Z13.31 Assessments Encounter Date Diagnosis (ICD Code) Assessment Notes Treatment Notes Treatment Clinical Notes Section Notes 01/07/2025 Annual physical exam (ICD-10 - Z00.00) Order given to the patient to be done at [facility] 01/07/2025 Family history of diabetes mellitus (ICD-10 - Z83.3) good sugar 01/07/2025 Pure hypercholesterolemia (ICD-10 - E78.00) well controlled 01/07/2025 History of hematuria (ICD-10 - Z87.448) has been evaluted 01/07/2025 Hypertension, essent ial (ICD-10 - I10) doing well on meds 01/07/2025 Colon cancer screeni ng (ICD-10 - Z12.11) guaiac negative 01/07/2025 Depression screening (ICD-10 - Z13.31) negative screen Plan Of Treatment Medication Medication Name Sig Start Date Stop Date Notes Rosuvastatin Calcium 40 mg TAKE 1 TABLET DAILY Treatment Notes Assessment Notes Annual physical exam Order given to the patient to be done at [facility] Family history of diabetes mellitus good sugar Pure hypercholesterolemia well controlle d History of hematuria has been evaluted Hypertension, essential doing well on me ds Colon cancer screening guaiac negative Depression screening negative screen Next Appt Details Follow Up: 6 Months, Reason: Provider Name:Jayesh fraire, 08/05/2025 03:00:00 PM, [address] [place] [address], [address], [phone], Provider Name:Jayesh fraire, 01/04/2026 07:15:00 AM, [address] [place] [address], [address], [phone], Provider Name:Jayesh fraire, 01/11/2026 03:00:00 PM, [address] [place] [address], [address], [phone], Progress Notes * Navjot TAPIA RDOB:[birth year] (64 yo M)Acc No.[id number]:01/07/2025 Progress Notes Patient: Lee VALADEZ Navjot Marci Provider: Jesse Waters MD :1960 A ge:64 Y S ex:Male Date:01/07/2025 Address:[address] [place], [place] [id number] Subjective: * Chief Complaints: * A NNUAL EXAM/ must see urine * HPI: D epression Screening: PHQ-9 L ittle interest or pleasure in doing things N ot at all, F eeling down, depressed, or hopeless N ot at all, T rouble falling or staying asleep, or sleeping too much N ot at all, F eeling tired or having little energy N ot at all, P oor appetite or overeating N ot at all, F eeling bad about yourself or that you are a failure, or have let yourself or your family down N ot at all, T rouble concentrating on things, such as reading the newspaper or watching television N ot at all, M oving or speaking so slowly that other people could have noticed; or the opposite, being so fidgety or restless that you have been moving around a lot more than usual N ot at all, T houghts that you would be better off or of hurting yourself in some way N ot at all, T otal Score 0 . I nterpretation and Intervention D epression Screening Findings N egative, F ollow-Up for Depression : review of PHQ-9 found negative result, no follow-up needed. C ommunication Needs: Communication Needs D oes the patient have a hearing impairment N o, D oes the patient have a vision impairment? Y es, I f yes, what is the vision impairment? G lasses, D oes the patient have a cognition impairment? N o. F all Risk: History H ave you had any falls with injury in the past year? N o, H ave you had two or more falls in the past year? N o. S ELIZABETH Questions: SDOH Questions I n the past year have you been worried about losing housing? N o, I n the past year have you or any family members you live with been unable to get any of the following when it was really needed? Check all that apply: N one. S ymptom(s): patient is a 64 yo male here for annual visit with review of recent labs and follow up of chronic issues. * ROS: G eneral/Constitutional: Change in appetite d enies. C hills d enies. F ever d enies. O phthalmologic: Blurred vision d enies. D ischarge d enies. P ain d enies. E NT: Decreased hearing d enies. S ore throat d enies.?Swollen glands d enies. E ndocrine: Cold intolerance d enies. E xcessive thirst d enies. H eat intolerance d enies. W eight loss d enies. R espiratory: Cough d enies. S hortness of breath at rest d enies. S hortness of breath with exertion d enies. W heezing d enies. C ardiovascular: Chest pain at rest d enies. C hest pain with exertion?denies. I rregular heartbeat d enies. S hortness of breath d enies. ? G astrointestinal: Abdominal pain d enies. C hange in bowel habits d enies. D iarrhea d enies. N ausea d enies. R ectal bleeding d enies. V omiting d enies . G enitourinary: Blood in urine d enies. D ifficulty urinating d enies. F requent urination d enies. M usculoskeletal: Painful joints d enies. W eakness d enies. ? S kin: Dry skin d enies. I tching d enies. D enies?Mole(s), changes in moles, new moles or any lesions of concern. D enies P hotosensitivity. R nitza d enies. N eurologic: Dizziness d enies. F ainting d enies. H eadache?denies. * Medical History: * Surgical History: * Hospitalization/Major Diagno stic Procedure: * Family History: F ather: 75 yrs, diagnosed with Cancer. M other: 90 yrs, natural causes.?2 brother(s) , 1 sister(s) . 2 daughter(s) . . Father- lung cancer Mother old age, Denies mental health/substance abuse family history, Denies mental health/substance abuse family history, Denies mental health/substance abuse family history, Denies mental health/substance abuse family history. * Social History: T obacco Use: T obacco Use/Smoking P atient is a n onsmoker, A dditional Findings: Tobacco Non-User C urrent non-smoker, currently using no form of tobacco. D rugs/Alcohol: A lcohol Screen D id you have a drink containing alcohol in the past year? N o, P oints 0 , I nterpretation N egative. M iscellaneous: C affeine: yes, frequency:, 1-2 cups per day. Children: yes. Community involvements: yes, belongs to [employer] group. Exercise: yes, 1-2 times per week sit ups. Housing: owning. Living with: with daughter. Marital status: . Occupation: works full-time. Travel outside of the [place]: no. * Medications: T akingRosuvastatin Calcium 40 mg Tablet TAKE 1 TABLET DAILY Omeprazole 20 mg Capsule Delayed Release TAKE 1 CAPSULE DAILY 30 MINUTES BEFORE MORNING MEAL oral daily Taking Rosuvastatin Calcium 40 mg Tablet TAKE 1 TABLET DAILY Taking Omeprazole 20 mg Capsule Delayed Release TAKE 1 CAPSULE DAILY 30 MINUTES BEFORE MORNING MEAL oral daily Not-Taking/PRNFurosemide 20 MG Tablet 1 tablet Orally Once a day Medication List reviewed and reconciled with the patientNot-Taking/PRN Furosemide 20 MG Tablet 1 tablet Orally Once a day Medication List reviewed and reconciled with the patient * Allergies: N .K.D.A.yes[Allergies Verified] Objective: * Vitals: H t: 69, Wt: 230, BMI:33.96, BP:132/60, Wt-k.33. * P ast Orders: L ab:PSA,Total (Free>4and<10) (Order Date - 12/26/2024) (Collection Date & Time - 12/26/2024 09:36 AM) Value Reference Range PSA,Total (Free>4and<10) 0.38 0.00-4.00 - ng/ mL L ab:Complete Blood Count Auto Diff (Order Date - 12/26/2024) (Collection Date & Time - 12/26/2024 09:36 AM) Value Reference Range White Blood Count 6.3 4.8-10.8 - X10*3/uL Red Blood Count 4.93 4.60-5.80 - X10*6/uL Hemoglobin 14.8 14.0-18.0 - g/dl Hematocrit 43.8 42.0-52.0 - % Mean Corpuscular Volume 88.8 80.0-98.0 - fL Mean Corpuscular Hemoglobin 30.0 27.0-33.0 - pg Mean Corpuscular HGB Conc 33.8 31.0-36.0 - g/ dl Red Cell Distribution Width 13.3 11.0-16.0 - % Platelet Count 229 160-400 - X10*3/uL Mean Platelet Volume 8.7 L 9.4-12.4 - fL Neutrophils Percent Auto 58.0 45-73 - % Imm Gran Pct Auto 0.3 0.0-0.4 - % Lymphocytes Percent Auto 28.5 20-40 - % Monocytes Percent Auto 9.2 2-11 - % Eosinophils Percent Auto 2.9 0-4 - % Basophils Percent Auto 1.1 0-2 - % NRBC Pct Auto 0.0 0.0-0.2 - /100WBC Neutrophils Absolute Auto 3.7 2.0-8.3 - x10* 3/uL Imm Gran Abs Auto 0.02 0.00-0.03 - X10*3/uL Lymphocytes Absolute Auto 1.8 1.2-4.9 - X10* 3/uL Monocytes Absolute Auto 0.6 0.1-1.2 - X10*3/ uL Eosinophils Absolute Auto 0.2 0.0-0.4 - X10* 3/uL Basophils Absolute Auto 0.1 0.0-0.2 - X10*3/ uL NRBC Abs Auto 0.000 0.0-0.012 - X10*3/uL L ab:Comprehensive Met. Panel (Order Date - 12/26/2024) (Collection Date & Time - 12/26/2024 09:36 AM) Value Reference Range Sodium 141 135-145 - mmol/L Bilirubin Total 0.7 0.0-1.0 - mg/dL Aspartate Amino Transferase 36 5-37 - U/L Alanine Aminotransferase 38 0-40 - U/L Total Protein 7.1 6.5-8.0 - g/dL Albumin Level 4.4 3.5-5.0 - g/dL Alkaline Phosphatase 88 39-117 - U/L Potassium 4.3 3.3-5.1 - mmol/L Chloride 107 96-108 - mmol/L Carbon Dioxide 26 22-29 - mmol/L Anion Gap 12 12-20 - Blood Urea Nitrogen 10 9-16 - mg/dL Creatinine 0.83 0.5-1.4 - mg/dL Estimated Glomerular Filt Rate > 60 - Glucose Random 106 60-115 - mg/dL Calcium 9.2 8.4-10.2 - mg/dL L ab:Lipase (Order Date - 12/26/2024) (Collection Date & Time - 12/26/2024 09:36 AM) Value Reference Range Lipase 13 8-78 - U/L * Examination: G eneral Examination: GENERAL APPEARANCE: w ell developed, well nourished, in no acute distress. HEAD: n ormocephalic, atraumatic. EYES: p upils equal, round, reactive to light and accommodation, sclera non-icteric. EARS: n ormal. ORAL CAVITY: m ucosa moist. THROAT: c lear. NECK/THYROID: n anya supple, full range of motion, no cervical lymphadenopathy, no bruits. SKIN: w arm and dry, no suspicious lesions. HEART: r egular rate and rhythm, S1, S2 normal, no murmurs.? LUNGS: c lear to auscultation bilaterally. ABDOMEN: s oft, nontender, nondistended, bowel sounds present, normal, no organomegaly , no masses palpable. RECTAL EXAM: n ormal tone, no external hemorrhoids, no masses palpable, prostate normal, stool guaiac negative. MALE GENITOURINARY: c ircumcised, no testicular mass, testes descended bilaterally. EXTREMITIES: n o clubbing, cyanosis, or edema. NEUROLOGIC: n onfocal, motor strength normal upper and lower extremities, sensory exam intact. Assessment: * Assessment: 1. A nnual physical exam - Z00.00 (Primary) 2 . F amily history of diabetes mellitus - Z83.3 3 . P ure hypercholesterolemia - E78.00 4 .?History of hematuria - Z87.448 5 . H ypertension, essential - I10 6. C olon cancer screening - Z12.11 7 . D epression screening - Z13.31? Plan: * Treatment: 2. F amily history of diabetes mellitus Notes: good sugar 3. P ure hypercholesterolemia Continue Rosuvastatin Calcium Tablet, 40 mg, TAKE 1 TABLET DAILY. L AB: Liver Panel L AB: Lipid Panel with Reflex Notes: well controlled 4. H istory of hematuria Notes: has been evaluted 5. H ypertension, essential Notes: doing well on meds 6. C olon cancer screening L AB: Occult Blood, Stool, Guaiac (Collection Date & Time - 01/07/2025) N egative Value Reference Range O ccult Blood, Stool, Guaiac Neg Notes: guaiac negative??7.?Depression screening? Notes: negative screen?? * Procedure Codes: 8 2270 TEST FOR BLOOD, FECES * Follow Up: 6 Months * * Sign off status: Completed true * Provider: Jesse Waters MD Date: 0 01/07/2025 Generated for Kishor singh/Frederick/Marcelo on: 09/23/2024 08:43 AM EST History and Physical Notes * HPI (History of Present Illness) Category Sub-Category Detail Notes Category Not es Symptom(s) patient is a 64 yo male here for annual visit with review of recent labs and follow up of chronic issues. Depression Screening PHQ-9 Little inte rest or pleasure in doing things: Not at all Feeling down, depressed, or hopeless: No t at all Trouble falling or staying asleep, or sl eeping too much: Not at all Feeling tired or having little energy: N ot at all Poor appetite or overeating: Not at all Feeling bad about yourself o r that you are a failure, or have let yourself or your family down: Not at all Trouble concentrating on thi ngs, such as reading the newspaper or watching television: Not at all Moving or speaking so slowly that other people could have noticed; or the opposite, being so fidgety or restless that you have been moving around a lot more than usual: Not at all Thoughts that you would be b morenita off or of hurting yourself in some way: Not at all Total Score: 0 Interpretation and Intervention Depression Deedee chicas Findings: Negative Follow-Up for Depression: : review of PH Q-9 found negative result, no follow-up needed SDOH Questions SDOH Questions In the past year have you been worried about losing housing?: No In the past year have you or any family members you live with been unable to get any of the following when it was really needed? Check all that apply:: None Fall Risk History Have you had any falls with injury i n the past year?: No Have you had two or more falls in the year?: No Communication Needs Communication Needs Does the patient have a hearing impairment: No Does the patient have a vision impairmen t?: Yes If yes, what is the vision impairment?: Glasses Does the patient have a cognition impair ment?: No Examination Category Sub-Category Detail Notes Category Not es General Examination GENERAL APPEARANCE: well dev eloped, well nourished, in no acute distress HEAD: normocephalic, atrau matic EYES: pupils equal, round, reactive to light and accommodation, sclera non-icteric EARS: normal THROAT: clear NECK/THYROID: neck supple, full ra nge of motion, no cervical lymphadenopathy, no bruits HEART: regular rate and rhy thm, S1, S2 normal, no murmurs LUNGS: clear to auscultatio n bilaterally ABDOMEN: soft, nontender, non distended, bowel sounds present, normal, no organomegaly , no masses palpable NEUROLOGIC: nonfocal, motor stre ngth normal upper and lower extremities, sensory exam intact SKIN: warm and dry, no nickolas picious lesions EXTREMITIES: no clubbing, cyanosi s, or edema MALE GENITOURINARY: circumcised, no test icular mass, testes descended bilaterally RECTAL EXAM: normal tone, no exte rnal hemorrhoids, no masses palpable, prostate normal, stool guaiac negative ORAL CAVITY: mucosa moist
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
--- OUTSIDE RECORDS SUMMARY | 2025-07-08 02:15 | XMS_ITS ---
Author Organization Jayesh Waters MD Address [address] [place], [place] [phone] Care Team Providers Care Interior Decorator Paperhanging Name Role Phone Jayesh Waters Primary Care Provider REASON FOR VISIT FASTING LIPIDS Encounters Encounter Location Date Provider Diagnosis Jayesh Waters MD [address] [place] [id number] 07/08/2025 Jayesh Waters Pure hypercholestero lemia E78.00 Assessments Encounter Date Diagnosis (ICD Code) Assessment Notes Treatment Notes Treatment Clinical Notes Section Notes 07/08/2025 Pure hypercholesterolemia (ICD-10 - E78.00) Plan Of Treatment Pending Test Test Name Order Date Liver Panel 07/08/2025 Lipid Panel with Reflex 07/08/2025 Next Appt Details Provider Name:Jayesh Mckenna ier, 08/05/2025 03:00:00 PM, [address] [facility], [address] [place] [address], [phone], Provider Name:Jayesh fraire, 01/04/2026 07:15:00 AM, [address] [facility], [address] [place] [address], [phone], Provider Name:Jayesh fraire, 01/11/2026 03:00:00 PM, [address] [place] [address], [address], [place], [place], [phone], Progress Notes * Navjot TAPIA RDOB:[birth year] (65 yo M)Acc No.[id number]:07/08/2025 Progress Note Patient: Navjot SNYDER Provider: Jesse Waters MD :1960 A ge:65 Y S ex:Male Date:07/08/2025 Address:[address] [place], [place] [phone] Subjective: * Chief Complaints: * 1 . FASTING LIPIDS. * Medical History: Objective: * Vitals: Assessment: * Assessment: 1. P ure hypercholesterolemia - E78.00 (Primary) Plan: * Treatment: * * The named appointment provid er may or may not be the originator of this progress note, and it is not deemed complete until electronically signed by the appointment provider. Sign off status: Pending * Provider: Jesse Waters MD Date: 09/07/2024 Generated for Kishor singh/Frederick/Matildesmitting on: 09/23/2024 08:44 AM EST
--- OUTSIDE RECORDS SUMMARY | 2025-07-24 08:43 | XMS_ITS | Patient Health Record ---
Author Organization Jayesh Waters MD Address [address] [place], [place] [id number] Care Team Providers Care Credit Risk Officer Name Role Phone Jayesh Waters Primary Care Provider Allergies No Known Allergies Results Component Value Reference Range Notes Occult Blood, Stool, Guaiac Reviewed date:01/07/2025 03:26:26 PM Interpretation:Negative Performing Lab: Notes/Report: Negative Occult Blood, Stool, Guaiac Neg Liver Panel Reviewed date:01/12/2025 12:35:27 PM Interpretation: Performing Lab:[facility], [address] [place] [phone] Notes/Report: Bilirubin Total 0.5 0.0-1.0 mg/dL Bilirubin Direct 0.2 0.0-0.5 mg/dL Aspartate Amino Transferase 28 5-37 U/L Alanine Aminotransferase 33 0-40 U/L Total Protein 7.2 6.5-8.0 g/dL Albumin Level 4.4 3.5-5.0 g/dL Alkaline Phosphatase 86 39-117 U/L Lipid Panel with Reflex Reviewed date:01/12/2025 12:35:16 PM Interpretation: Performing Lab:[facility], [address] [place] [phone] Notes/Report: Triglycerides 95 <150 mg/dL Desirable Triglyceride: [...] low results in patients with liver disease. XR sacrum coccyx min 2V Reviewed date:03/15/2025 08:03:23 AM Interpretation: Performing Lab: Notes/Report: [address] [address] XRay Report Signed Patient: Navjot Tapia MR#: [id number] 300 : 1960 Acct:[id number] Age/Sex: 65 / M ADM Date: 03/12/25 Loc: [facility] Attending Dr: Jayesh Waters MD Ordering Physician: Jayesh Waters MD Date of Service: 03/12/25 Procedure(s): XR sacrum coccyx min 2V Accession Number(s): [id number] cc: Jayesh Waters MD EXAMINATION: XR SACRUM [...] Víctor Rincon MD 03/12/2025 03:52 PM EDT Dictated By: Víctor Rincon MD Signed By: <Electronically signed by Víctor Rincon MD in OV> 03/12/25 1552 DD/ 1528 TD/TT: 03/12/25 1548 Retail Loss Prevention Investigator: [address] [address] XRay Report Signed Patient: Holden Tapia MR#: [id number] 300 : 1960 Acct:[id number] Age/Sex: 65 / M ADM Date: 03/12/25 Loc: [facility] Attending Dr: Jayesh Waters MD Ordering Physician: Jayesh Waters MD Date of Service: 03/12/25 Procedure(s): XR sac rum coccyx min 2V Accession Number(s): [id number] cc: Jayesh Waters MD EXAMINATION: XR SACRUM [...] Víctor Rincon MD 03/12/2025 03:52 PM EDT Dictated By: Víctor Rincon MD Signed By: <Electronically signed by Víctor Rincon MD in OV> 03/12/25 1552 DD/ 1528 TD/TT: 03/12/25 1548 Retail Loss Prevention Investigator: Pathology Reviewed date:10/13/2024 12:48:00 PM Interpretation: Performing Lab:[facility], [address] [place] [phone] Notes/Report: ---- Name: Navjot Tapia Age/Sex: 64/M : 1960 Unit#: [id number] Attend Dr: Gibson Reddy MD Re09/25/24 Status : [facility] Location: [facility] Disch: ---- SPEC : [id number] RECD: 09/25/24-1224 STATUS: ANATona MC NUM: [id number] CASEY: 09/25/24-[address] [facility] [address]: Gibson Reddy MD ENTERED: 09/25/24 32 SP TYPE: Surgical OTHR DR: Jayesh Waters MD ORDERED: HE Stain/6, Gross Micro L4/2, IHC, Special st. 2/2, H. pylori, AB/PAS/2 COMMENTS: 8 unstaine d slides sent to [employer] for [employer] on 09/30/24. Addendum Addendum 1 [...] Navjot Tapia Age/Sex: 64/M : 1960 Unit#: [id number] Attend Dr: Gibson Reddy MD Re09/25/24 Status : [facility] Location: [facility] Disch: ---- SPEC : [id number] RECD : 09/25/24-5 STATUS: KAREEM JOHNSON NUM: [id number] CASEY: 09/25/24-[address]: Gibson Reddy MD ENTERED: 09/25/24-12 32 SP TYPE: Surgical OTHR DR: Jayesh Waters MD ORDERED: HE Stain/6, Gross Micro L4/2, IHC, Special st. 2/2, H. pylori, AB/PAS/2 COMMENTS: 8 unstaine d slides sent to [employer] for [employer] on 09/30/24. Gross Description Received [...] Physicians [address] [place] [address] [facility] [address] [place] [address] ---- Signed (signature on file) Lauren Tian MD 09/28/24 1500 ---- END OF REPORT Complete Blood Count Auto Di ff Reviewed date:12/27/2024 03:42:26 PM Interpretation: Performing Lab:[facility], [address] [place] [phone] Notes/Report: White Blood Count 6.3 4.8-10.8 X10*3/uL [...] Panel Reviewed date:12/27/2024 03:39:25 PM Interpretation: Performing Lab:[facility], [address] [place] [phone] Notes/Report: Sodium 141 135-145 mmol/L Potassium 4.3 [...] Lipase Reviewed date:12/27/2024 03:36:13 PM Interpretation: Performing Lab:[address] [phone] Notes/Report: Lipase 13 8-78 U/L PSA,Total (Free>4and<10) Reviewed date:12/27/2024 03:36:25 PM Interpretation: Performing Lab:[address] [phone] Notes/Report: PSA,Total (Free>4and<10) 0.38 0.00-4.00 ng/mL A [...] t Reviewed date:01/07/2025 02:58:02 PM Interpretation:01-07-25 Performing Lab:[facility] [place] [address], [place] [address] Notes/Report: Urine, Clean Catch Color Urine Yellow Appearance Urine Clear PH 8.0 5.0-9.0 Glucose Urine UA Negative Negative mg/dL Urine Blood Trace Negative Specific [place] - Urine <= 1.005 1.005-1.025 Urine Protein [...] pt wa s given the vaccine at [facility] in [place] Fluarix Quadrivalent Unknown 07/15/2017 Administered At work Fluarix Quadrivalent Unknown 06/09/2018 Administered At work Flu[employer] Quadrivalent IM Intramuscular 06/12/2019 Administered pt was given th e vaccine at [facility] in [facility]. 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 Problem 219827857 Family history o f diabetes mellitus (Z83.3) Active confirmed Problem 175825544 History of hemat uria (Z87.448) Active confirmed Problem 693070588 Non-rheumatic mi tral regurgitation (I34.0) Active confirmed Problem 153349360 Pure hypercholesterolemia (E78.00) Active confirmed Problem 367031717 BMI 32.0-32.9,ad ult (Z68.32) Active confirmed Problem 95308351 Hypertension, es sential (I10) Active confirmed Vital Signs Blood pressure diastolic 70 mm Hg 03/12/2025 Height 69 in 03/12/2025 Blood pressure systolic 142 mm Hg 03/12/2025 Weight 232 lbs 03/12/2025 BMI 34.26 kg/m2 03/12/2025 Encounters Encounter Location Date Provider Diagnosis Jayesh Waters MD [address] [place] [address] Drive [address] [place] [id number] 09/15/2024 Jayesh Waters Bautista esophagus K2 2.70 and Preoperative clearance Z01.818 Jayesh Waters MD [address] [place] [address] Drive [address] [place] [id number] 01/07/2025 Jayesh Waters Annual physical exam Z00.00 ; Family history of diabetes mellitus Z83.3 ; Pure hypercholesterolemia E78.00 ; History of hematuria Z87.448 ; Hypertension, essential I10 ; Colon cancer screening Z12.11 and Depression screening Z13.31 Jayesh Waters MD [address] [place] [address] [address] [place] [id number] 03/12/2025 Jayesh Waters Coccyx pain M53.3 Jayesh Waters MD [address] [place] [address] Drive [address] [place] [id number] 01/01/2025 Jayesh Waters Assessments Encounter Date Diagnosis (ICD Code) Assessment Notes Treatment Notes Treatment Clinical Notes Section Notes 09/15/2024 Bautista esophagus (ICD-10 - K22.70) awaiting diagnostic testing 09/15/2024 Preoperative clearan ce (ICD-10 - Z01.818) patient healthy. cleared for endoscopy/ echo had no significant cardiac disease 01/07/2025 Annual physical exam (ICD-10 - Z00.00) Order given to the patient to be done at [facility] 01/07/2025 Family history of diabetes mellitus (ICD-10 - Z83.3) good sugar 03/12/2025 Coccyx pain (ICD-10 - M53.3) THE XRAY ORDER WAS PRINTED AND GIVEN TO NAVJOT, pending diagnostic testing 01/07/2025 Pure hypercholesterolemia (ICD-10 - E78.00) well [...] DOPPLER 04/28/20 24 ECHO 04/28/2024 ECHO 12/08/2020 Next Appt Details Provider Name:Jayesh Mckenna ier, 08/05/2025 03:00:00 PM, [address] [place] [address], [address], [phone], Provider Name:Jayesh Mckenna ier, 01/04/2026 07:15:00 AM, [address] [place] [address], [address], [phone], Provider Name:Jayesh Mckenna ier, 01/11/2026 03:00:00 PM, [address] [place] [address], [address] [place] [address], [phone], Insurance Providers Payer Name Payer Address Payer Phone Subscriber Number Group Number Insured Name Patient Relationship to Insured Coverage Start Date Coverage End Date [employer] [address] [place], [place] [id number] [phone] [id number] Navjot Tapia Self - patient is the insured Medical (General) History Medical History History ICD Code Refuses flu shot (07-14-12) colonoscopy 08/2009 was normal 2013 - cysto (results l imited - Dr. iDane suggested repeat); not able to do. colonoscopy 03/10/21 awaiting path 5--10y r f/u [facility]. had endo 2020. repeat [address] REDDY COLONOSCOPY DUE 02/2031
--- OUTSIDE RECORDS SUMMARY | 2025-07-24 08:45 | XMS_ITS | Patient Health Record ---
Author Organization [facility] Address [address] [place] [address] Care Team Providers Care Landscaper Helper Name Role Phone Jayesh Waters MD Primary Care Provider Gibson Villela Unavailable [phone] Allergies No Known Allergies Results Component Value Reference Range Notes Pathology (Not yet reviewed by provider) Interpretation: Performing Lab:[facility], [address] [place] [phone] Notes/Report: Reason For Referral No Information Medications Medication SIG (Take, Route, Frequency, Duration) Notes Start Date End Date Status Omeprazole 20 MG Capsule Delayed Release 1 capsule 30 minutes before morning meal Orally Once a day; Duration: 30 day(s) Active Motrin PRN Active Atorvastatin Calcium 40 MG Tablet 1 tablet Orally Once a day; Duration: 30 day(s) Active Immunizations Vaccine Route Administration Date Status Comme nts Influenza Unknown 02/08/2021 Refused Influenza Unknown 05/06/2024 Administered Social History Tobacco Use: Social History Observation Description Date Details (start date - stop date) Never Smoker NA - NA Social History Drugs/Alcohol: Social Info Question Answer Notes Alcohol Screen Did you have a drink containing alcohol in the past year? 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 [employer] Notes: Nonsmoker; no sig alcohol Nonsmoker; no sig alcohol Problems Problem Type SNOMED Code ICD Code Onset Dates Problem Status W/U Status Risk Notes Problem Information temporarily unavailable Esophageal reflux (K21.9) Active confirmed Problem Information temporarily unavailable Encounter for screening for malignant neoplasm of colon (Z12.11) Active confirmed Problem Information temporarily unavailable Abdominal pain, epigastric (R10.13) Active confirmed Problem Information temporarily unavailable Gastroesophageal reflux disease without esophagitis (K21.9) Active confirmed Problem Information temporarily unavailable Gastric polyps (K31.7) Active confirmed Problem Information temporarily unavailable Diverticular disease of colon (K57.30) Active confirmed Problem Information temporarily unavailable Family history of esophageal cancer (Z80.0) Active confirmed Problem Information temporarily unavailable 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) Active confirmed Problem Information temporarily unavailable Gastroesophageal reflux disease, unspecified whether esophagitis present (K21.9) Active confirmed Encounters Encounter Location Date Provider Diagnosis [facility] [address] [place], [place] [phone] 09/25/2024 Gibson Reagan Bautista''s esophagus without dysplasia K22.70 ; Gastroesophageal reflux disease without esophagitis K21.9 and Gastric polyps K31.7 [facility] [address] [place] [address] 08/10/2024 Gibson Reagan Assessments Encounter Date Diagnosis (ICD Code) Assessment Notes Treatment Notes Treatment Clinical Notes Section Notes 09/25/2024 Gastroesophageal reflux disease without esophagitis (ICD-10 - K21.9) 09/25/2024 Bautista''s esophagus without dysplasia (ICD-10 - K22.70) 09/25/2024 Gastric polyps (ICD-10 - K31.7) Plan Of Treatment Pending Test Test Name Order Date US ABD 02/08/2021 Pathology 09/25/2024 Future Test Test Name Order Date UPPER GI ENDOSCOPY 02/08/2021 COLONOSCOPY 02/08/2021 UPPER GI ENDOSCOPY 05/20/2024 Insurance Providers Payer Name Payer Address Payer Phone Subscriber Number Group Number Insured Name Patient Relationship to Insured Coverage Start Date Coverage End Date [facility] [address] [place], [place] [id number] ELIAS HARRIS Self - patient is the insured Medical (General) History Medical History History ICD Code Hyperlipidemia GERD Denies LA,DM,CVA,Lung disease,renal dise ase EGD reportedly negative over [...]
--- OUTSIDE RECORDS SUMMARY | 2025-07-24 08:45 | XMS_ITS | Patient Health Record ---
Author Organization [facility] Address [address] [place] [address] Care Team Providers Care County Health Officer Name Role Phone Jayesh Waters MD Primary Care Provider Marlo Castro Unavailable [phone] Allergies No Known Allergies Reason For Referral No Information Medications Medication SIG (Take, Route, Frequency, Duration) Notes Start Date End Date Status Omeprazole 20 MG (Prior Auth#:[id number]) Oral; Duration: 90 Active Atorvastatin Calcium 40 MG (Prior Auth#:[id number]) Oral; Duration: 90 Active methylPREDNISolone 4 MG (Prior Auth#:[id number]) Oral; Duration: 6 Not-Taking Social History Alcohol Screen Question Answer Notes Did you have a drink containing alcohol in the p ast year? No Points 0 Interpretation Negative Plan Of Treatment No Information Insurance Providers Payer Name Payer Address Payer Phone Subscriber Number Group Number Insured Name Patient Relationship to Insured Coverage Start Date Coverage End Date [employer] [address] [place] [address] [phone] [id number] Navjot Tapia Self - patient is the insured Medical (General) History Medical History History ICD Code CAD (Cholesterol) Reflux Surgical History Surgery Date(Month/Year)
[2025-07-24 10:39] LABS: Alanine Aminotransferase 38 U/L (0-40); Albumin Level 4.5 g/dL (3.5-5.0); Alkaline Phosphatase 84 U/L (39-117); Aspartate Amino Transferase 30 U/L (5-37); Cholesterol 165 mg/dL (<200); HDL Cholesterol 43 mg/dL (>40); Total Protein 7.1 g/dL (6.5-8.0); Triglycerides 202 mg/dL (<150)
== END 2025-07-24 08:43 | disposition home or self-care (01) ==
LOC: HO.LAB 08:42
PROVIDERS: PCP Internal Medicine; Visit Provider Internal Medicine
DX: E78.00 Pure hypercholesterolemia, unspecified (principal)
CPT/HCPCS: 36415; 80061; 80076